=== PATIENT | male | born 1960 | race Caucasian/White ===

== ENCOUNTER 2017-06-20 01:25 | Inpatient (IN) | payer BC ==
[~2017-06-20] VITALS: Ht 190.5 cm; Wt 110.8 kg
[~2017-06-20 01:25] MED LIST: BACTRIM DS1 TAB PO; LEXAPRO10 MG PO; LORTAB5 PO; MELOXICAM7.5 MG PO; METFORMIN500 MG PO; NEXIUM20 M1 PO; NORCO1 TA2 PO; SIMVASTATIN40 MG PO; TRAMADOL HCL50 MG PO; ULTRAM50 M1 PO
--- NOTE | 2017-06-20 01:29 | NUR ---
PT STRAIGHT BACK TO ROOM 14 AND TRIAGED.
[2017-06-20] MEDS ORDERED: EFFEXOR XR75 MG PO (01:54)
[2017-06-20] MEDS ORDERED: EFFEXOR37.5 MG PO (01:56)
[2017-06-20] MEDS ORDERED: ATORVASTATIN CA40 MG PO (01:57)
[2017-06-20] MEDS ORDERED: WELLBUTRIN XL300 MG PO (01:57)
[2017-06-20 02:07] LABS: HEMATOCRIT 44.6 % (39.0-50.0); HEMOGLOBIN 15.1 g/dl (14.0-18.0); IMMATURE GRANULOCYTES 0.5 % (0.0-1.0); MEAN CELL VOLUME 91.2 fL CALC (80.0-100.0); MEAN CORPUSCULAR HGB 30.9 pG CALC (26.0-32.0); MEAN CORPUSCULAR HGB CONC 33.9 g/L CALC (32.0-36.0); NEUT# 7.25 thou/uL (1.82-7.42); RED BLOOD COUNT 4.89 mill/uL (4.70-6.10)
[2017-06-20 02:12] LABS: URINE BILIRUBIN - DIPSTICK NEGATIVE (NEGATIVE); URINE BLOOD DIPSTICK NEGATIVE (NEGATIVE); URINE COLOR YELLOW; URINE GLUCOSE - DIPSTICK 500 mg/dL (NEGATIVE); URINE KETONE 15 mg/dL (NEGATIVE); URINE LEUK ESTERASE NEGATIVE (NEGATIVE); URINE NITRITE - DIPSTICK NEGATIVE (Negative); URINE PH 5.5 (4.5-8.0); URINE PROTEIN - DIPSTICK TRACE mg/dL (NEG-TRACE); URINE SPECIFIC GRAVITY >=1.030
[2017-06-20 02:13] LABS: URINE CLARITY CLOUDY
[2017-06-20 02:16] LABS: ALBUMIN 4.2 g/dL (3.2-5.0); ALKALINE PHOSPHATASE 87 u/l (38-126); ANION GAP 17 (6-22 (CALC)); BILIRUBIN, TOTAL 0.5 mg/dL (0.0-1.4); BUN 13 mg/dL (9-20); BUN/CREATININE RATIO 21 (12-20 (CALC)); CARBON DIOXIDE 27 mmol/l (22-30); CHLORIDE 102 mmol/l (95-108); CREATININE 0.6 mg/dL (0.7-1.3); GFR > 60 ML/MIN (>=60 (CALC)); GFR FOR AFR.AMER. > 60 ML/MIN (>=60 (CALC)); POTASSIUM 4.5 mmol/l (3.5-5.1); SGOT/AST 19 u/l (17-59); SGPT/ALT 45 u/l (21-72); SODIUM 142 mmol/l (137-146)
[2017-06-20 02:16] LABS: BARBITURATES NEGATIVE (NEGATIVE); COCAINE NEGATIVE (NEGATIVE); METHADONE NEGATIVE (NEGATIVE); OXCYCODONE NEGATIVE (NEGATIVE); TETRAHYDROCANNABIONOL NEGATIVE (NEGATIVE); TRICYLIC ANTIDEPRESSANTS NEGATIVE (NEGATIVE); URINE BACTERIA FEW hpf; URINE MUCUS MANY hpf (NONE-FEW); URINE SQUAMOUS EPITHELIAL CELL MANY EPI/hpf (0-FEW)
--- NOTE | 2017-06-20 02:20 | NUR ---
PT W/P/D SKIN SR NO ECTOPY MEDICATED FOR STERNAL PAIN AT 8 ON SCALE.
[2017-06-20 02:29] LABS: MYOGLOBIN 28 ng/mL (0 - 121)
[2017-06-20 02:47] LABS: TSH, 3RD GENERATION 3.07 uIU/mL (0.47 - 4.68)
--- NOTE | 2017-06-20 03:02 | NUR ---
PT REMEDICATED FOR PAIN AT 5 ON SCALE.SR WITHOUT ECTOPY NO SOB NO NAUSEA,W/P/D SKIN
--- NOTE | 2017-06-20 04:51 | NUR ---
PT REMEDICATED FOR STERNAL PAIN AT 4 ONSCALE,W/P/D SKIN NO NAUSEA NO SOB. SR WITHOUT ECTOPY
--- NOTE | 2017-06-20 05:00 | NUR ---
PHONE REPORT TO NURSE RUEDA IN ICU
--- NOTE | 2017-06-20 05:40 | NUR ---
TO ICU VIA STRETCHER MONITOR AND RN ESCORT IN IMPROVED STABLE CONDITION
--- NOTE | 2017-06-20 05:45 | NUR ---
ARRIVES FROM ER VIA STRETCHER ON TELE MONITOR. AMBULATORY WITH STEADY GAIT FROM ER STRETCHER TO ICU STANDING ELECTRONIC SCALE AND THEN TO ROOM. PT. UNDRESS BOTTOMS AND WITHOUT ASSIST GETS HIMSELF INTO BED. FOUND TO BE SINUS RHYTHM IN THE 80'S ON ARRIVAL TO UNIT. NORMOTENSIVE AT 118/80. PT. STATES WITH 3/10 CHEST PAIN AT THIS TIME. IMPROVED FROM 8/10. PT. DESCRIBES PAIN SHARP WITH RADIATION TO BACK AND LT. ARM. ALSO DESCRIBES SWEATS AND NAUSEA PRIOR TO EPISODE OF CHEST PAIN. PT. PLACED ON 2L NC. CLEAR/SCANT WHEEZE TO LT. UPPER, CLEAR RT. UPPER. DIMINISHED BASES. UPDATED ON PLAN OF CARE AND LIKELY COURSE OF TREATMENT. EXPLAINED OF NEEDED SERIAL ENZYME TESTING.
[2017-06-20 06:00] VITALS: BP 118/94
--- NOTE | 2017-06-20 06:20 | NUR ---
PT. PROVIDED WITH APPLE JUICE AT THIS TIME PER HIS REQUEST. CALL LIGHT REMAINS WITHIN REACH.
--- NOTE | 2017-06-20 07:25 | NUR ---
PT LAYING IN BED RESTING WITH EYES CLOSED, AROUSES EASILY TO VERBAL STIMULI, PT A & O X3, PERRL, HR 80, RESP. 20, BP 105/77, O2 100% ON 2L VIA, EX WHEEZES IN [place], DIMINISHED IN BASES, CLEAR IN RUL, PT STATES CP IS A 3 OUT OF 10 AT THIS TIME, PT DENIES ANY OTHER PAIN, 20G LAC IV, SALINE LOCKED, NO REDNESS OR DRAINAGE AT SITE, STRONG RADIAL AND PEDAL PULSES, AM ASSESSMENT COMPLETE, SEE INTERVENTIONS, SAFETY MEASURES REINFORCED, CALL CABAN WITHIN REACH
--- NOTE | 2017-06-20 07:35 | NUR ---
SETUP ASSISTANCE PROVIDED WITH GAURI MONSALVE
[2017-06-20 08:00] VITALS: BP 105/77
--- NOTE | 2017-06-20 08:00 | NUR ---
PT VERBALIZED HE WAS HOT AND REQUEST THE AC BE TURNED DOWN, AC TURNED DOWN AND FAN PROVIDED FOR PT COMFORT
--- NOTE | 2017-06-20 09:55 | NUR ---
LITTLE HOLLAND AT BEDSIDE DISCUSSING PLAN OF CARE
--- NOTE | 2017-06-20 11:45 | NUR ---
SETUP ASSISTANCE PROVIDED WITH LUNCH
[2017-06-20 12:00] VITALS: BP 107/65
--- NOTE | 2017-06-20 12:40 | NUR ---
PT'S AT BEDSIDE, BROUGHT IN HOME MEDICATION, SENT TO PHARMACY FOR VERIFICATION
--- NOTE | 2017-06-20 12:55 | NUR ---
PT LAYING IN BED RESTING WITH EYES CLOSED, AROUSES EASILY TO VERBAL STIMULI, PT VERBALIZES CP IS BETTER WITH THE PAIN MEDICATION, PT STATES PAIN IS A 2 OUT OF 10, PT REMINDED TO CALL FOR ASSISTANCE, CALL CABAN WITHIN REACH
--- NOTE | 2017-06-20 13:45 | NUR ---
LITTLE HOLLAND AWARE PT WOULD NOT BE SEEN BY DR STOVER UNTIL THURSDAY
--- NOTE | 2017-06-20 15:43 | NUR ---
PT SITTING UP IN THE BED WATCHING TV, NO S/S OF DISTRESS, CALL CABAN WITHIN REACH
[2017-06-20 16:00] VITALS: BP 112/68
--- NOTE | 2017-06-20 18:08 | NUR ---
PT ARRIVED FROM UNIT VIA WC ACCOMPANIED BY STAFF. IV SITE IS FREE FROM REDNESS OR EDEMA. TELE MONITOR HAS BEEN PICKED UP BY STAFF AND PLACED ON PT. AMBULATED TO THE BED. CONTINUE TO OBSERVE AND MONITOR.
[2017-06-20 18:25] VITALS: BP 125/72
[2017-06-20 19:30] VITALS: BP 116/86
--- NOTE | 2017-06-20 19:30 | NUR ---
PATIENT RESTING IN BED WITH O2 VIA NASAL CANNULA IN PLACE-AWAKE ALERT AND ORIENTEDX3-C/O LEFT SIDED CHEST PAIN THAT RADIATES TO THE LEFT SHOULDER. VS TAKEN AND RECORDED, TELE MONITOR SR-79, O2 SATS 98%. EKG DONE AT BEDSIDE. WILL CONT TO MONITOR.
--- NOTE | 2017-06-20 20:00 | NUR ---
SPOKE WITH DR. PAGE WITH PATIENT UPDATE. PATIENT MEDICATED WITH MORPHINE 2MG IVP ORDERED FOR 6/10 ON PAIN SCALE. HEP LOCK TO LEFT AC INTACT AND HEALTHY AT THIS TIME. WILL CONT TO MONITOR.
--- NOTE | 2017-06-20 20:30 | NUR ---
PATIENT RESTING IN BED-APPEARS MORE COMFORTABLE AND STATES THAT IS PAIN IS BETTER AT 3/10. PATIENT IS VOIDING DARK RODRIGUE URINE-ENCOURAGED PO FLUIDS. CALL LIGHT IN REACH. WILL CONT TO MONITOR.
--- NOTE | 2017-06-20 22:52 | NUR ---
PATIENT RESTING IN BED WITH O2 VIA NASAL CANNULA IN PLACE-AWAKE ALERT AND ORIENTED AND C/O LEFT SIDED CHEST PAIN THAT RADIATES TO THE LEFT SHOULDE. VS TAKEN AND RECORDED. TELE MONITOR SR-79. O2 SATS 98. EKG DONE AT BEDSIDE. WILL CONT TO MONITOR.
--- NOTE | 2017-06-21 01:08 | NUR ---
APPEARS SLEEPING AT THIS TIME POSITIONED ON HIS SIDE AND WITH EYES CLOSED. CALL LIGHT IN REACH. WILL CONT TO MONITOR.
--- NOTE | 2017-06-21 03:52 | NUR ---
PATIENT APPEARS SLEEPING AT THIS TIME. CALL LIGHT IN REACH. TELE MONITOR IN PLACE. CALL LIGHT IN REACH, WILL CONT TO MONITOR.
[2017-06-21 04:42] VITALS: BP 119/71
[2017-06-21 05:14] LABS: HEMATOCRIT 40.8 % (39.0-50.0); HEMOGLOBIN 13.6 g/dl (14.0-18.0); IMMATURE GRANULOCYTES 0.4 % (0.0-1.0); MEAN CELL VOLUME 91.7 fL CALC (80.0-100.0); MEAN CORPUSCULAR HGB 30.6 pG CALC (26.0-32.0); MEAN CORPUSCULAR HGB CONC 33.3 g/L CALC (32.0-36.0); RED BLOOD COUNT 4.45 mill/uL (4.70-6.10); RED CELL DISTRI WIDTH 13.9 % (11.5-15.5)
[2017-06-21 05:28] LABS: ANION GAP 14 (6-22 (CALC)); BUN 15 mg/dL (9-20); BUN/CREATININE RATIO 22 (12-20 (CALC)); CARBON DIOXIDE 29 mmol/l (22-30); CHLORIDE 101 mmol/l (95-108); CREATININE 0.7 mg/dL (0.7-1.3); GFR > 60 ML/MIN (>=60 (CALC)); GFR FOR AFR.AMER. > 60 ML/MIN (>=60 (CALC)); MAGNESIUM 1.4 mg/dL (1.6-2.3); POTASSIUM 4.6 mmol/l (3.5-5.1); SODIUM 140 mmol/l (137-146)
[2017-06-21 08:05] VITALS: BP 142/86
--- NOTE | 2017-06-21 08:05 | NUR ---
PT IS RELAXING IN BED, HAD CHEST PAIN AT SHIFT CHANGE MEDICATED ORDERED. IV SITE IS FREE FROM REDNESS OR EDEMA. HR IS REG, PULSES ARE STRONG X4, ABD IS SOFT WITH ACTIVE BS. TELE MONITOR IN PLACE. PT IS "SWEATING, STATED I DO THIS ALL THE TIME, AFTER THE CHEST PAIN FOR NO REASON". CONTINUE TO OBSERVE AND MONITOR.
[2017-06-21 11:45] VITALS: BP 137/42
--- NOTE | 2017-06-21 12:15 | NUR ---
PT IS RELAXING IN BED WITH NO DISTRES NOTED. IV SITE IS FREE FROM REDNESS OR EDEMA. CONTINUE TO OBSERVE AND MONITOR.
--- NOTE | 2017-06-21 16:00 | NUR ---
PT IS RELAXING ON HIS SIDE WITH NO DISTRESS NOTED. AT THIS TIME. IV SITE IS FREE FROM REDNESS OR EDMEA. CONTINUE TO OSBERVE AND MONITOR.
[2017-06-21 16:31] VITALS: BP 105/61
--- NOTE | 2017-06-21 17:00 | NUR ---
PT STATED" ABLE TO REST A LITTLE". LOOKS A LITTLE MORE COMFORTABLE.
--- NOTE | 2017-06-21 17:23 | NUR ---
PT HAS BEEN RESTING , INQUIRED IF HIS COULD BRING HIM IN SOME PLAIN DONUTS. INFORMED THAT WILL INFORM THE ONCOMING NURSE BUT SHOULD BE OK.
[2017-06-21 19:00] VITALS: BP 124/84
--- NOTE | 2017-06-21 19:30 | NUR ---
PATIENT RESTING IN BED ON FIRST ROUNDS. AWAKE ALERT AND ORIENTX3. PATIENT WITH O2 VIA MASK IN PLACE. C/O LEFT CHEST AND LEFT SHOULDER PAIN-STATES VERY LITTLE RELIEF FROM MORPHINE GIVEN AT 1805. EXPLAINED TO PATIENT THAT IT IS TOO EARLY FOR MOPHINE AT THIS TIME. PATIENT MEDICATED WITH MAGIC MOUTHWASH COCKTAIL ORDERED 30CC PO. ASKING FOR ATIVAN-EXPLAINED THAT IT WAS TOOEARLY-IF HE TOOK IT NOW HE WOULD NOT BE ABLE TO TAKE IT AGAIN AT HS. VERBALIZES UNDERSTANDING. IVF PATENT AND INFUSING VIA LEFT AC SITE-WILL REDRESS SITE AT LATER TIME. VOIDING QS RODRIGUE URINE. STATES LAST BM WAS 06/19. ABD IS SOFT WITH BS+. SAFETY PRECAUTIONE REINFORCED. CALL LIGHT IN REACH. WILL CONT TO MONITOR.
--- NOTE | 2017-06-21 21:35 | NUR ---
PATIENT WITH ONLY SLIGHT IMPROVEMENT OF PAIN WITH MORPHINE GIVEN EARLIER. PATIENT DOES STATE THAT HE HAS BEEN TAKING HYDROCODONE 5/325MG PO FOR CHRONIC SHOULDER PAIN AND THAT HE JUST STOP TAKING IT A COUPLE OF WEEKS AGO WHEN HE STARTED SOME OTHER NEW MEDS. [id number] WITH NOVALOG 3UNITS SQ RIGHT ABD. PATIENT ALREADY HAD HS SNACK FROM HOME. SAFETY PRECAUTIONS REINFORCED. CALL LIGHT IN REACH. WILL CONT TO MONITOR.
--- NOTE | 2017-06-22 | NUR ---
APPEARS SLEEPING AT THIS TIME POSITIONED ON SIDE AND EYES CLOSED. IVF PATENT AND INFUSING AT 75CC/HR. CALL LIGHT IN REACH. WILL CONT TO MONITOR.
[2017-06-22 00:19] VITALS: BP 103/65
--- NOTE | 2017-06-22 03:49 | NUR ---
IV SITE LEAKING AND D/C'ED. NEW IV SITE STARTED TO LEFT FOREARM-#22 GAUGE WITH GOOD BLOOD RETURN. PATIENT MEDICATED WITH MORPHINE 2MG IVP FOR PAIN 6/10 ON PAIN SCALE TO LEFT CHEST ANDLEFT SHOULDER. IVF PATENT AND INFUSING AT 75CC/HR. CALL LIGHT IN REACH. WILL CONT TO MONITOR.
[2017-06-22 04:25] VITALS: BP 114/76
[2017-06-22 05:28] LABS: HEMATOCRIT 40.9 % (39.0-50.0); HEMOGLOBIN 13.3 g/dl (14.0-18.0); IMMATURE GRANULOCYTES 0.4 % (0.0-1.0); MEAN CELL VOLUME 94.5 fL CALC (80.0-100.0); MEAN CORPUSCULAR HGB 30.7 pG CALC (26.0-32.0); MEAN CORPUSCULAR HGB CONC 32.5 g/L CALC (32.0-36.0); NEUT# 5.23 thou/uL (1.82-7.42); RED BLOOD COUNT 4.33 mill/uL (4.70-6.10); RED CELL DISTRI WIDTH 14.1 % (11.5-15.5)
[2017-06-22 05:45] LABS: ALBUMIN 3.4 g/dL (3.2-5.0); ALKALINE PHOSPHATASE 78 u/l (38-126); ANION GAP 14 (6-22 (CALC)); BILIRUBIN, TOTAL 0.4 mg/dL (0.0-1.4); BUN 16 mg/dL (9-20); BUN/CREATININE RATIO 23 (12-20 (CALC)); CARBON DIOXIDE 29 mmol/l (22-30); CHLORIDE 101 mmol/l (95-108); CREATININE 0.7 mg/dL (0.7-1.3); GFR > 60 ML/MIN (>=60 (CALC)); GFR FOR AFR.AMER. > 60 ML/MIN (>=60 (CALC)); MAGNESIUM 1.7 mg/dL (1.6-2.3); POTASSIUM 4.4 mmol/l (3.5-5.1); SGOT/AST 26 u/l (17-59); SGPT/ALT 49 u/l (21-72); SODIUM 139 mmol/l (137-146); TOTAL PROTEIN 5.8 g/dL (6.3-8.2)
--- NOTE | 2017-06-22 07:15 | NUR ---
BEDSIDE REPORT RECEIVED BY HEIDY. PT IS RESTING IN BED AND DENIES NEEDS AT THIS TIME. CALL LIGHT IN REACH.
--- NOTE | 2017-06-22 07:55 | NUR ---
MEDICATED PT WITH MORPHINE FOR PAIN SEE EMAR. ASSESSMENT DONE AND TELE IN PLACE. LUNG SOUND CLEAR/DIMINSHED. NS INFUSING WELL. SAFETY PRECAUTIONS REINFORCED AND CALL LIGHT IN REACH.
[2017-06-22 07:59] VITALS: BP 129/89
--- NOTE | 2017-06-22 10:56 | NUR ---
MEDICATED PT WITH MORPHINE FOR PAIN SEE EMAR. PT DENIES ANY OTHER NEEDS AT THIS TIME. CALL LIGHT IN REACH.
[2017-06-22 11:02] VITALS: BP 138/93
[2017-06-22] MEDS ORDERED: LORTAB 5/3255 MG PO (12:08)
[2017-06-22] MEDS ORDERED: NITROSTAT0.4 MG SL (12:08)
[2017-06-22] MEDS ORDERED: ASPIRIN CHEWABL81 MG PO (12:08)
[2017-06-22] MEDS ORDERED: ATIVAN0.5 MG PO (12:12)
--- NOTE | 2017-06-22 13:14 | NUR ---
MEDICATED PT WITH MORPHINE FOR PAIN SEE EMAR. PT DENIES ANY OTHER NEEDS AT THIS TIME. NO S/S OF DISTRESS NOTED. PT IN ROOM. CALL LIGHT IN REACH.
--- NOTE | 2017-06-22 13:25 | NUR ---
Discharge instructions given. Patient verbalizes understanding of same. Discharged in stable condition via Wheelchair to Home with . All belongings sent with pt.
== END 2017-06-22 13:25 | disposition home or self-care (01) | DRG 311 ==
LOC: ED 01:25 → ED-I 04:08 → ED 04:33 → ICU 04:34 → MS2 12:48 → ICU 16:35 → MS2 18:08
PROVIDERS: Emergency Medicine; Nurse Practitioner Family; ADMIT Internal Medicine; ATTEND Internal Medicine
DX: I20.9 Angina pectoris, unspecified (principal); E83.42 Hypomagnesemia; I45.2 Bifascicular block; E11.9 Type 2 diabetes mellitus without complications; F41.9 Anxiety disorder, unspecified; E78.5 Hyperlipidemia, unspecified; N40.0 Benign prostatic hyperplasia without lower urinary tract symptoms; I51.9 Heart disease, unspecified; F32.9 Major depressive disorder, single episode, unspecified; M54.9 Dorsalgia, unspecified; Z79.84 Long term (current) use of oral hypoglycemic drugs; Z87.891 Personal history of nicotine dependence
CPT/HCPCS: J2060; Q9967

== ENCOUNTER 2020-02-16 11:39 | Observation (INO) | payer BC ==
[~2020-02-16] VITALS: Ht 193 cm; Wt 112.1 kg
[~2020-02-16 11:39] MED LIST changes: +ASPIRIN CHEWABL81 MG PO; +ATIVAN0.5 MG PO; +ATORVASTATIN CA40 MG PO; +EFFEXOR XR75 MG PO; +EFFEXOR37.5 MG PO; +LORTAB 5/3255 MG PO; +NITROSTAT0.4 MG SL; +WELLBUTRIN XL300 MG PO
--- NOTE | 2020-02-16 11:57 | NUR ---
BEDSIDE TRIAGE COMPLETED. PT CHANGED TO GOWN AND VS OBTAINED.
[2020-02-16] MEDS ORDERED: SUCRALFATE1 GM PO (12:33)
[2020-02-16] MEDS ORDERED: LEXAPRO10 MG PO (12:34)
[2020-02-16] MEDS ORDERED: AMITRIPTYLIN25 MG PO (12:35)
[2020-02-16] MEDS ORDERED: BUSPIRONE5 MG PO (12:36)
[2020-02-16] MEDS ORDERED: TAMSULOSIN0.4 MG PO (12:36)
[2020-02-16] MEDS ORDERED: HYDROCO/APAP1 TA9 PO (12:37)
[2020-02-16] MEDS ORDERED: SPIRIVA IN (12:38)
[2020-02-16] MEDS ORDERED: TIZANIDINE HCL4 MG PO (12:39)
[2020-02-16] MEDS ORDERED: ALPRAZOLAM0.25 MG PO (12:42)
[2020-02-16] MEDS ORDERED: PROAIR HFA108 MCG/AC IN (12:44)
[2020-02-16] MEDS ORDERED: SYMBICORT1 AE1 IN (12:45)
[2020-02-16] MEDS ORDERED: CASODEX50 MG PO (12:46)
[2020-02-16] MEDS ORDERED: PROTONIX40 M2 PO (12:46)
--- NOTE | 2020-02-16 12:46 | NUR ---
PT STATES THAT HE IS COVID POSITIVE AND THAT HE HAS STARTED WITH THESE FLU LIKE SYMPTOMS SINCE A WK AGO AND HE MENTIONS THAT IN THE LAST 24 HRS HIS S/S OF HEADACHE, BODY ACHES, AND SOB HAS INCREASED. PT HAS A RR 28 AND SPO2 IS AT 98%. DENIES ANY COUGH, N/V, OR DIARRHEA. DENIES CHEST PAIN. LUNGS HAVE WHEEZING BILAT AND IS INCREASED IN THE RIGHT LUNG. EKG DONE, LABS AND MD CORONADO COMPLETED. CALL LIGHT WITHIN REACH. WILL CONTINUE TO MONITOR.
[2020-02-16] MEDS ORDERED: MELOXICAM15 MG PO (12:47)
[2020-02-16] MEDS ORDERED: NALTREXONE50 MG PO (12:47)
[2020-02-16 13:13] LABS: HEMATOCRIT 44.9 % (39.0-50.0); HEMOGLOBIN 15.2 g/dl (14.0-18.0); IMMATURE GRANULOCYTES 0.7 % (0.0-5.0); MEAN CELL VOLUME 88.6 fL CALC (80.0-100.0); MEAN CORPUSCULAR HGB CONC 33.9 g/dL CAL (32.0-36.0); NEUT# 6.54 thou/uL (1.82-7.42); RED BLOOD COUNT 5.07 mill/uL (4.70-6.10)
[2020-02-16 13:25] LABS: ALBUMIN 4.8 g/dL (3.2-5.0); ALKALINE PHOSPHATASE 84 u/l (38-126); ANION GAP 15 (6-22 (CALC)); BILIRUBIN, TOTAL 0.7 mg/dL (0.0-1.4); BUN 20 mg/dL (9-20); BUN/CREATININE RATIO 29 (12-20 (CALC)); CARBON DIOXIDE 24 mmol/l (22-30); CHLORIDE 101 mmol/l (95-108); CREATININE 0.7 mg/dL (0.7-1.3); GFR > 60 ML/MIN (>=60 (CALC)); GFR FOR AFR.AMER. > 60 ML/MIN (>=60 (CALC)); SGOT/AST 20 u/l (17-59); SODIUM 135 mmol/l (137-146); TOTAL PROTEIN 7.7 g/dL (6.3-8.2)
--- NOTE | 2020-02-16 13:33 | NUR ---
PT RESTING ON STRETCHER, DENIES ANY NEEDS AND CALL LIGHT WITHIN REACH
[2020-02-16 13:34] LABS: INTERNATIONAL NORMALIZED RATIO 0.9 RATIO (0.7-1.3); PROTHROMBIN TIME 9.2 SECONDS (9.0-12.5)
[2020-02-16 13:36] LABS: MYOGLOBIN 28 ng/mL (0 - 121)
[2020-02-16 13:42] LABS: D-DIMER 0.17 mg/L (0.19-0.60)
--- NOTE | 2020-02-16 14:30 | NUR ---
PT UPDATED ON PLAN OF CARE. HE VERBALIZED UNDERSTANDING ON ADMISSION. DENIES ANY NEEDS AT THIS TIME, CALL LIGHT WITHIN REACH
[2020-02-16 14:56] LABS: URINE BILIRUBIN - DIPSTICK NEGATIVE (NEGATIVE); URINE BLOOD DIPSTICK NEGATIVE (NEGATIVE); URINE COLOR YELLOW; URINE GLUCOSE - DIPSTICK 250 mg/dL (NEGATIVE); URINE KETONE NEGATIVE (NEGATIVE); URINE LEUK ESTERASE NEGATIVE (NEGATIVE); URINE NITRITE - DIPSTICK NEGATIVE (Negative); URINE PH 5.5 (4.5-8.0); URINE PROTEIN - DIPSTICK NEGATIVE (NEG-TRACE); URINE SPECIFIC GRAVITY >=1.030; URINE UROBILINOGEN - DIPSTICK 0.2 E.U./dL (0.2)
--- NOTE | 2020-02-16 15:24 | NUR ---
GAVE REPORT TO MICAELA
--- NOTE | 2020-02-16 15:30 | NUR ---
PT TRANSPORTED TO [facility] STABLE AND IN NO DISTRESS. CARE ASSUMED TO MICAELA Admission Note Report Given to: MICAELA Transported by: X Wheelchair Stretcher Transported with: X Nurse Transporter X Patent IV O2 X [employer] Location: ICU X MS2
--- NOTE | 2020-02-16 15:36 | NUR ---
PT ARRIVED VIA WC WITH STAFF. IV AND TELE MONITOR IN PLACE.
--- NOTE | 2020-02-16 16:05 | NUR ---
ASSESSMENT IS COMPLTED: IV SITE IS FREE FROM REDNESS OR EDEMA. HR IS REG,PULSES ARE STRONG X4, ABD IS SOFT WITH ACTIVE BS. BREATH SOUNDS ARE WHEEZING. DOES HAVE SOME COUGHING NO SPUTUM. TELE MONITOR IN PLACE. CONTINUE TO OSBERVE AND MONITOR.
[2020-02-16 16:15] VITALS: BP 137/90
--- NOTE | 2020-02-16 17:08 | NUR ---
CALLED DR MA RE: LACTIC ACID LEVEL BEING REFUSED BY PT TO LET THE LAB DRAW. STATED" ITS OK NOT TO WORRY ABOUT IT.".
--- NOTE | 2020-02-16 18:32 | NUR ---
PT IS RELAXING IN BED WITH NO DISTRESS NOTED
[2020-02-16 19:15] VITALS: BP 114/71
--- NOTE | 2020-02-16 19:35 | NUR ---
SUPERVISOR FERTILIZER PROCESSING REPORTED THAT PT ASKED HER FOR SOMETHING ELSE FOR PAIN WHEN SHE TOOK WATER AROUND AND TO OBTAIN V/S. I WAS IN ANOTHER ROOM AT THAT TIME, BUT NOW ENTERED THE ROOM AND TURNED A SMALL LOW LIGHT ON TO CHECK PT. HE APPEARS TO BE SLEEPING ON HIS SIDE, BACK TO THE DOOR. HE DID NOT AWAKE TO ME ENTERING THE ROOM. PT LEFT SLEEPING, WITH CALL LIGHT AT SIDE. NO S/O DISTRESS AT THIS TIME.
--- NOTE | 2020-02-16 21:25 | NUR ---
PT ACCU-CHECK IN CRITICAL RANGE. STAT BLOOD GLUCOSE OBTAINED AND PHYSICIAN NOTIFIED OF 571 BLOOD GLUCOSE LEVEL. NEW ORDERS WERE RECEIVED. I ALSO NOTIFIED PHYSICIAN OF C/O PAIN AND PTS REQUEST OF ADDITIONAL PAIN MEDICATION FOR HEAD/NECK AND R.HIP PAIN. NEW ORDERS RECEIVED FOR PAIN LEVEL AT THIS TIME.
--- NOTE | 2020-02-16 22:10 | NUR ---
PT MEDICATED FOR ELEVATED BLOOD GLUCOSE AND FOR PAIN 7/10 IN HEAD AND NECK. PT DOES NOT REPORT NECK STIFFNESS, NOR DOES HE APPEAR TO BE STIFF IN THE NECK, HE IS MOVING AROUND WELL AT THIS TIME, BUT REPORTS PAIN. HE IS NOW REPORTING PAIN IN HIS RIGHT HIP AND HIS HAND WHERE BLOOD WAS DRAWN. WILL CONTINUE TO MONITOR. PT PO FLUID INTAKE IS OVER 2000MLS SO FAR THIS SHIFT FOR ME AND HE IS ASKING FOR MORE WATER. URINATED 2X, AMOUNTS ARE IN CHART. WILL CONTINUE TO MONITOR. ANTIBIOTIC THERAPY IS NOT AVAILABLE ON THE MED SURG UNIT, CALLED SUPERVISION FOR MEDICATION, WILL ADMINISTER WHEN IT BECOMES AVAILABLE.
--- NOTE | 2020-02-16 22:47 | NUR ---
PT MEDICATED WITH IV ANTIBIOTIC THERAPY AT THIS TIME. HE REPORTS PAIN HAS IMPROVED IN RESPONSE TO THE MORPHINE ADMINSTERED PRIOR. DENIES ANY OTHER NEEDS AT THIS TIME. CALL LIGHT IS W/IN REACH.
[2020-02-16 23:20] VITALS: BP 107/65
[2020-02-17 04:30] VITALS: BP 87/55
--- NOTE | 2020-02-17 06:13 | NUR ---
PT BP MANUALLY CHECKED @120/70. IVF REPLENISHED AND PT MEDICATED FOR PAIN REPORTED 10/10 IN NECK AREA. NO OUTWARD S/O DISTRESS NOTED. CALL LIGHT IS AT SIDE, PT DENIES ANY OTHER NEEDS AT THIS TIME, ENCOURAGED HIM TO CALL NEEDS ARISE.
[2020-02-17 06:15] VITALS: BP 120/70
[2020-02-17 07:58] VITALS: BP 121/53
--- NOTE | 2020-02-17 07:58 | NUR ---
RECIEVED REPORT FROM KIM DANIEL. PT RESTING IN SEMI FOWLERS POSITION UPON ENTERING ROOM. INTRODUCED SELF TO PT AND DISCUSSED POC. PT IS A/O X3. ASSESSMENT AND VITALS COMPLETED. RESPIRATIONS ARE EVEN AND UNLABORED ON ROOM AIR. HEART RHYTHM IS NORMAL WITH TELE MONITORING IN PLACE, SR WITH IVCD PER ER MONITORING. RADIAL AND PEDAL PULSES ARE STRONG WITH NORMAL CAPILLARY REFILL. #20G IN RAC RUNNING WITH IVF PER ORDER, SITE APPEARS HEALTHY AND PATENT. ACCU CHECK RESULTING IN 302, SLIDING SCALE COVERAGED ADMINISTERED. PT COMPLAINS OF 7/10 PAIN IN NECK AND BACK. LORTAB TO BE ADMINISTERED. PT DENIES OF ANY OTHER PAINS OR DISCOMFORTS. ALL SAFTEY AND ISOLATION PRECAUTIONS ARE IN PLACE WITH CALL LIGHT IN REACH. WILL CONTINUE TO MONITOR.
[2020-02-17 10:59] VITALS: BP 119/73
--- NOTE | 2020-02-17 11:44 | NUR ---
PT REQUEST FOR XANAX AT THIS TIME. XANAX ADMINISTERED. REASSESSMENT OF PAIN RESULTING IN 10/02. PT STATES THAT LORTAB WAS NO HELP. DRY ICE MAKER SUGGESTED REASSESSMENT OF PAIN AFTER ADMINISTRATION OF XANAX. PT AGGREED. RESPIRATIONS REMAINS EVEN AND UNLABORED ON ROOM AIR.PT DENIES OF ANY ADDITIONAL NEEDS AT THIS TIME. ALL SAFETY AND ISOLATION PRECAUTIONS ARE IN PLACE WITH CALL LIGHT IN REACH. WILL CONTINUE TO MONITOR
[2020-02-17 15:15] VITALS: BP 106/62
--- NOTE | 2020-02-17 16:11 | NUR ---
PT RESTING IN SEMI FOWLERS POSITION. RESPIRATIONS ARE EVEN AND UNLABORED ON ROOM AIR. IVF INFUSING PER ORDER, SITE APPEARS HEALTHY AND PATENT. PT COMPLAINS OF 9/10 PAIN IN BACK AND NECK, MORPHINE ADMINISTERED. PT DENIES OF ANY OTHER PAINS OR DISCOMFORTS. ALL SAFTEY AND ISOLATION PRECAUTIONS ARE IN PLACE WITH CALL LIGHT IN REACH. WILL CONTINUE TO MONITOR
--- NOTE | 2020-02-17 18:56 | NUR ---
CALLED FOR UPDATE, PASSCODE PROVIDED. PROTECTION MANAGER INFORMED BY THAT PT DOES HAVE HISTORY OF DRUG AND ALCOHOL ABUSE. STATES THAT "HE WILL COMPLAIN OF PAINS WHEN HE NOT IN PLAIN."
[2020-02-17 19:00] VITALS: BP 116/70
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
--- NOTE | 2020-02-17 20:34 | NUR ---
SPOKE WITH DR. MA REGARDING PT'S CONCERNS AND REQUEST FOR NON-OPIATE ANALGESIC. DR. MA REPLIES HE WILL ORDER TORADOL VIA [facility]PO[facility]. PT MADE AWARE. TEACHING PROVIDED ON TORADOL. PT SATISFIED WITH CHANGES TO HIS ANALGESIC.
--- NOTE | 2020-02-17 21:45 | NUR ---
FINGERSTICK GLUCOSE 282mg/Dl, INSULIN ADMINSITERED PER SLIDING SCALE. SCHEDULED MEDICATIONS ADMINISTERED. PRN TORADOL AND TYLENOL ADMINSITERED FOR THROBBING NECK PAIN 11/02. SEE E-MAR. PT DENIES FURTHER NEEDS AT THIS TIME. CALL CABAN WITHIN REACH, AGREES TO CALL PRN.
--- NOTE | 2020-02-17 23:59 | NUR ---
PT LAYING IN BED WITH EYES CLOSED, NO APPARENT DISTRESS, APPEARS TO BE SLEEPING COMFORTABLY. RESPIRATIONS REGULAR AND UNLABORED. CALL CABAN REMAINS WITHIN REACH.
[2020-02-18] VITALS: BP 123/64
--- NOTE | 2020-02-18 04:00 | NUR ---
PT LAYING IN BED WITH EYES CLOSED, NO APPARENT DISTRESS, APPEARS TO BE SLEEPING COMFORTABLY. RESPIRATIONS REGULAR AND UNLABORED. CALL CABAN REMAINS WITHIN REACH.
[2020-02-18 05:10] VITALS: BP 126/59
[2020-02-18 05:51] LABS: IMMATURE GRANULOCYTES 0.6 % (0.0-5.0); MEAN CELL VOLUME 91.9 fL CALC (80.0-100.0); MEAN CORPUSCULAR HGB 29.7 pG CALC (26.0-32.0); MEAN CORPUSCULAR HGB CONC 32.3 g/dL CAL (32.0-36.0); NEUT# 4.25 thou/uL (1.82-7.42); RED BLOOD COUNT 4.18 mill/uL (4.70-6.10); RED CELL DISTRI WIDTH 14.2 % (11.5-15.5)
[2020-02-18 06:03] LABS: HEMATOCRIT 38.4 % (39.0-50.0); HEMOGLOBIN 12.4 g/dl (14.0-18.0)
[2020-02-18 06:26] LABS: ALKALINE PHOSPHATASE 67 u/l (38-126); ANION GAP 7 (6-22 (CALC)); BUN 19 mg/dL (9-20); BUN/CREATININE RATIO 27 (12-20 (CALC)); C-REACTIVE PROTEIN 0.7 mg/dL (0-0.9); CARBON DIOXIDE 28 mmol/l (22-30); CHLORIDE 106 mmol/l (95-108); CREATININE 0.7 mg/dL (0.7-1.3); GFR > 60 ML/MIN (>=60 (CALC)); GFR FOR AFR.AMER. > 60 ML/MIN (>=60 (CALC)); POTASSIUM 4.3 mmol/l (3.5-5.1); SGOT/AST 17 u/l (17-59); SODIUM 136 mmol/l (137-146)
[2020-02-18 06:29] LABS: ALBUMIN 3.2 g/dL (3.2-5.0); BILIRUBIN, TOTAL 0.2 mg/dL (0.0-1.4); TOTAL PROTEIN 5.5 g/dL (6.3-8.2)
--- NOTE | 2020-02-18 07:33 | NUR ---
RECIEVED REPORT FROM KIM MRUGUIA. PT RESTING IN LOW FOLWERS POSITION UPON ENTERING ROOM. INTRODUCED SELF TO PT AND DISCUSSED POC. PT IS A/O X3. ASSESSMENT AND VITALS COMPLETED. BP 147/88, HR 71, O2 99% ON ROOM AIR. RESPIRATIONS ARE EVEN ADND UNLABAORED. LUNG SOUNDS ARE DIMINISHED. HEART RHYTHM IS NORMAL WITH TELE IN PLACE. BOWEL SOUNDS ARE ACTIVE IN ALL QUADRANTS. RADIAL AND PEDAL PULSES STRONG. #20G IN RAC RUNNING WITH NORMAL SALINE PER ORDER, SITE APPEARS HEALTHY AND PATENT. PT COMPLAINS OF 8/10 PAIN IN BACK. PT TO BE MEDICATED PER EMAR. PT DENIES OF ANY OTHER NEEDS AT THIS TIME. ALL SAFETY AND ISOALTION PRECAUTIONS ARE IN PLACE WIHT CALL LIGHT IN REACH. WILL CONTIUE TO MONITOR
[2020-02-18 07:59] VITALS: BP 147/88
--- NOTE | 2020-02-18 09:28 | NUR ---
DR MA AT BEDSIDE
[2020-02-18] MEDS ORDERED: GUAIFENESI100 MG/51 PO (10:05)
[2020-02-18] MEDS ORDERED: MEDDOSEPAK PO (10:05)
[2020-02-18] MEDS ORDERED: ZITHROMAX250 MG PO (10:05)
[2020-02-18] MEDS ORDERED: TESSALON PER100 MG PO (10:09)
[2020-02-18] MEDS ORDERED: LEVEMIR FL100 UNIT/M SC (10:09)
--- NOTE | 2020-02-18 10:58 | NUR ---
PT EDUCATED ON DISCHARGE INSTRUCTIONS AND NEW MEDICATIONS. PT VERBALIZED UNDERSTANDING. IV REMOVED WITH CATHATER STILL INTACT. PT TOLERATED WELL. TELE MONITORING REMOVED. ER NOTIFIED. WAITING FOR TRANSPORTATION. WILL CONTINUE TO MONITOR
--- NOTE | 2020-02-18 11:23 | NUR ---
Discharge instructions given. Patient verbalizes understanding of same. Discharged in stable condition via Wheelchair to Home with staff. All belongings sent with pt. PT DISCHARGED HOME VIA WHEELCHAIR ACCOMPANIED BY VÍCTOR TORRES. PT DISCHARGED WITH ALL DISCHARGE INSTRUCTIONS AND BELONGINGS
--- NOTE | 2020-02-20 14:32 | NUR ---
Post discharge follow up call completed today, 02/19 Pt. states he is doing well, improving gradually each day. Pt. is taking medication prescribed at discharge without issue. Pt. called PCP to schedule a follow up appt. and is wain=ting for a call back. No qustions or concerns. "you guys were great!"
== END 2020-02-18 11:22 | disposition home or self-care (01) | DRG 178 ==
LOC: ED 11:39 → ED-I 14:13 → ED 14:24 → MS2 14:25
PROVIDERS: Emergency Medicine; ADMIT Internal Medicine; ATTEND Internal Medicine
DX: U07.1 COVID-19 (principal); E87.2 Acidosis; R50.9 Fever, unspecified; R51.9 Headache, unspecified; R52 Pain, unspecified; R53.1 Weakness; R53.83 Other fatigue; F41.9 Anxiety disorder, unspecified; I25.119 Atherosclerotic heart disease of native coronary artery with unspecified angina pectoris; I45.10 Unspecified right bundle-branch block; E11.9 Type 2 diabetes mellitus without complications; J44.9 Chronic obstructive pulmonary disease, unspecified; N40.0 Benign prostatic hyperplasia without lower urinary tract symptoms; I25.2 Old myocardial infarction; F17.210 Nicotine dependence, cigarettes, uncomplicated; Z79.84 Long term (current) use of oral hypoglycemic drugs; Z85.46 Personal history of malignant neoplasm of prostate
CPT/HCPCS: G0378; J1650

== ENCOUNTER 2022-04-26 16:52 | Inpatient (IN) | payer OTHER ==
[2022-04-26] VITALS (32 sets, daily range): BP systolic 53–160; BP diastolic 22–91
[~2022-04-26] VITALS: Ht 193 cm; Wt 123.0 kg
[~2022-04-26 16:52] MED LIST changes: +ALPRAZOLAM0.25 MG PO; +AMITRIPTYLIN25 MG PO; +BUSPIRONE5 MG PO; +CASODEX50 MG PO; +GUAIFENESI100 MG/51 PO; +HYDROCO/APAP1 TA9 PO; +LEVEMIR FL100 UNIT/M SC; +MEDDOSEPAK PO; +MELOXICAM15 MG PO; +NALTREXONE50 MG PO; +PROAIR HFA108 MCG/AC IN; +PROTONIX40 M2 PO; +SPIRIVA IN; +SUCRALFATE1 GM PO; +SYMBICORT1 AE1 IN; +TAMSULOSIN0.4 MG PO; +TESSALON PER100 MG PO; +TIZANIDINE HCL4 MG PO; +ZITHROMAX250 MG PO
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
--- NOTE | 2022-04-26 17:18 | NUR ---
PT COMES IN VIA EMS FOR CHEST PAIN, AT BEDSIDE, PT CONNECTED TO VITALS MONITOR.
--- NOTE | 2022-04-26 17:44 | NUR ---
PT STATES HE HAS NOT TAKEN ANY OF HIS PRESCIPTION MEDS IN MONTHS. HE REPORTS "I KNOW I SHOULD TAKE THEM BUT I JUST DONT ANYMORE."
[2022-04-26 17:56] LABS: BASO% 0.4 % (0-3); EOS% 0.2 % (0-8); HEMATOCRIT 40.4 % (39.0-50.0); HEMOGLOBIN 12.9 g/dl (14.0-18.0); IMMATURE GRANULOCYTES 0.1 % (0.0-5.0); LYMPH% 20.5 % (15-41); MEAN CORPUSCULAR HGB 30.4 pG CALC (26.0-32.0); MEAN CORPUSCULAR HGB CONC 31.9 g/dL CAL (32.0-36.0); MONO% 4.4 % (2-13); NEUT# 6.26 thou/uL (1.82-7.42); NEUT% 74.4 % (42-76); RED BLOOD COUNT 4.25 mill/uL (4.70-6.10); RED CELL DISTRI WIDTH 13.5 % (11.5-15.5)
[2022-04-26 17:57] LABS: MEAN CELL VOLUME 95.1 fL CALC (80.0-100.0)
[2022-04-26 18:09] LABS: ALBUMIN 3.2 g/dL (3.2-5.0); ALKALINE PHOSPHATASE 71 u/l (38-126); BUN 5 mg/dL (9-20); BUN/CREATININE RATIO 7 (12-20 (CALC)); CHLORIDE 105 mmol/l (95-108); CREATININE 0.8 mg/dL (0.7-1.3); GFR FOR AFR.AMER. > 60 ML/MIN (>=60 (CALC)); GFR OTHER RACES > 60 ML/MIN (>=60 (CALC)); LIPASE 47 u/l (23-300); SODIUM 138 mmol/l (137-146); TOTAL PROTEIN 5.7 g/dL (6.3-8.2)
[2022-04-26 18:10] LABS: ANION GAP 16 (6-22 (CALC)); BILIRUBIN, TOTAL 0.2 mg/dL (0.2-1.3); CARBON DIOXIDE 20 mmol/l (22-30); MAGNESIUM 1.2 mg/dL (1.6-2.3); POTASSIUM 2.9 mmol/l (3.5-5.1); SGOT/AST 42 u/l (17-59)
--- NOTE | 2022-04-26 18:35 | NUR ---
PT ARLETH ACTED. VITALS STABLE. PT A/OX4 SITTING IN BED, EXPLAINED CARE PLAN AND AGREES TO CARE. 1:1 SITTER AT BEDSIDE
--- NOTE | 2022-04-26 19:30 | NUR ---
PT TO RADIOLOGY
--- NOTE | 2022-04-26 20:13 | NUR ---
PT RESTING IN BED COMFORTABLY DENIES CHEST PAIN, SITTER 1;1 BEDSIDE. SI PRECAUTIONS IN PLACE.
--- NOTE | 2022-04-26 22:51 | NUR ---
PT RESTING IN BED. SI PRECAUTIONS IN PLACE. 1:1 SITTER.
[2022-04-27] VITALS (67 sets, daily range): BP systolic 109–184; BP diastolic 64–129
--- NOTE | 2022-04-27 01:40 | NUR ---
PT DENIES NEEDS, PLEASANT AND COOPERATIVE, MOVES SELF IN BED, SINUS TACH, ON RA WITH SAT MID TO HIGH 90'S
--- NOTE | 2022-04-27 03:16 | NUR ---
PT AWAKE AND RESTING IN BED, COOPERATIVE
--- NOTE | 2022-04-27 05:39 | NUR ---
PT WAS UP AND AMBULATED TO BATHROOM FOR BM, NOW BACK TO BED, DENIES FURTHER NEEDS, NO ACUTE DISTRESS NOTED
--- NOTE | 2022-04-27 07:30 | NUR ---
PT IN ROOM AWAKE, IN BED AWAITING FOR PLACEMENT TO A CSU.
--- NOTE | 2022-04-27 08:30 | NUR ---
Reassessment of patient completed. No distress noted. SITTER AT BEDSIDE.
--- NOTE | 2022-04-27 09:30 | NUR ---
Pt. rechecked post pain med administration. Pain level (1-10): 6 Pain better/worse: Y
--- NOTE | 2022-04-27 09:30 | NUR ---
Reassessment of patient completed. No distress noted. SITTER AT BEDSIDE, SAFE ENVIRONMENT MAINTAINED.
--- NOTE | 2022-04-27 10:30 | NUR ---
Reassessment of patient completed. No distress noted. SITTER AT BEDSIDE, SAFE ENVIRONMENT MAINTAINED.
--- NOTE | 2022-04-27 11:30 | NUR ---
Reassessment of patient completed. No distress noted. SITTER AT BEDISE, SAFE ENVIRONMENT MAINTAINED.
--- NOTE | 2022-04-27 12:15 | NUR ---
'S OFFICE ARRIVED TO TAKE PT TO CSU. MONITORED PT'S VITALS, BP AT 173/122, PREVIOUS 189/101. ALERTED AND MEDS ORDERED FOR ETOH WITHDRAWAL, HYPERTENSION. CIWA OF 5. TRANSPORTATION TO CSU DELAYED SO PT CAN CONTINUE TO BE MONITORED.
[2022-04-27 15:10] LABS: BASO% 0.1 % (0-3); HEMATOCRIT 40.2 % (39.0-50.0); HEMOGLOBIN 13.1 g/dl (14.0-18.0); IMMATURE GRANULOCYTES 0.1 % (0.0-5.0); LYMPH% 11.2 % (15-41); MEAN CELL VOLUME 94.6 fL CALC (80.0-100.0); MEAN CORPUSCULAR HGB 30.8 pG CALC (26.0-32.0); MEAN CORPUSCULAR HGB CONC 32.6 g/dL CAL (32.0-36.0); MONO% 4.3 % (2-13); NEUT# 8.16 thou/uL (1.82-7.42); NEUT% 84.3 % (42-76); RED BLOOD COUNT 4.25 mill/uL (4.70-6.10); RED CELL DISTRI WIDTH 13.8 % (11.5-15.5)
[2022-04-27 15:28] LABS: ALBUMIN 3.6 g/dL (3.2-5.0); ALKALINE PHOSPHATASE 87 u/l (38-126); BUN 8 mg/dL (9-20); BUN/CREATININE RATIO 12 (12-20 (CALC)); CHLORIDE 102 mmol/l (95-108); CREATININE 0.7 mg/dL (0.7-1.3); GFR FOR AFR.AMER. > 60 ML/MIN (>=60 (CALC)); GFR OTHER RACES > 60 ML/MIN (>=60 (CALC)); LIPASE 69 u/l (23-300); SGOT/AST 42 u/l (17-59); SODIUM 136 mmol/l (137-146); TOTAL PROTEIN 6.4 g/dL (6.3-8.2)
[2022-04-27 15:29] LABS: ANION GAP 11 (6-22 (CALC)); BILIRUBIN, TOTAL 0.5 mg/dL (0.2-1.3); CARBON DIOXIDE 27 mmol/l (22-30); POTASSIUM 3.9 mmol/l (3.5-5.1)
--- NOTE | 2022-04-27 17:00 | NUR ---
pt removed several Iv lines through out the day. IV line has been replaced, 20g right forearm. cwia scores as follows 04/27/22 1200 5 04/27/22 1300 3 04/27/22 1400 4 04/27/22 1500 9 04/27/22 1600 22 04/27/22 1700 22
--- NOTE | 2022-04-27 17:13 | NUR ---
pt agitation and confusion increasing. pt removing all montoring equiptment, attempting to climb out of bed and leave. stating that he wants to go smoke. pt hallucating, pt has increased disorientation.
--- NOTE | 2022-04-27 17:28 | NUR ---
pt restrained per dr order. pt continues to be confused and removing monitoring devices.
--- NOTE | 2022-04-27 18:31 | NUR ---
pt continues to be confused, pt climbing out of bed, removing all monitoring equiptment. [facility] 04/27/22 [id number]
--- NOTE | 2022-04-27 19:11 | NUR ---
[address] talamantes. 1900 report called to icu, all questions anwsered at this time
--- NOTE | 2022-04-27 19:50 | NUR ---
PT UP TO ICU VIA STRETCHER, ACCOMPANIED BY Beena ABBOTT LPN AND Geneva DEMARCO CNA.
--- NOTE | 2022-04-27 20:12 | NUR ---
RECEIVED PATIENT FROM ER ALERT AND ORIENTED, PLEASANT BUT TRIED TO PULLED LINES .ORIENTED TO ROOM ,CALL LIGHT .VERBALIZED UNDERSTANDING
--- NOTE | 2022-04-27 23:28 | NUR ---
PATIENT RESTING. NO S/S OF DISTRESS NOTED.
[2022-04-28] VITALS (67 sets, daily range): BP systolic 110–188; BP diastolic 56–118
[2022-04-28 05:17] LABS: BASO% 0.5 % (0-3); EOS% 0.2 % (0-8); HEMATOCRIT 36.7 % (39.0-50.0); HEMOGLOBIN 11.6 g/dl (14.0-18.0); IMMATURE GRANULOCYTES 0.2 % (0.0-5.0); LYMPH% 26.2 % (15-41); MEAN CELL VOLUME 97.9 fL CALC (80.0-100.0); MEAN CORPUSCULAR HGB 30.9 pG CALC (26.0-32.0); MEAN CORPUSCULAR HGB CONC 31.6 g/dL CAL (32.0-36.0); MONO% 4.4 % (2-13); NEUT# 4.01 thou/uL (1.82-7.42); NEUT% 68.5 % (42-76); RED BLOOD COUNT 3.75 mill/uL (4.70-6.10); RED CELL DISTRI WIDTH 13.9 % (11.5-15.5)
[2022-04-28 05:23] LABS: ALKALINE PHOSPHATASE 66 u/l (38-126); BILIRUBIN, TOTAL 0.4 mg/dL (0.2-1.3); BUN 7 mg/dL (9-20); BUN/CREATININE RATIO 11 (12-20 (CALC)); CARBON DIOXIDE 29 mmol/l (22-30); CHLORIDE 104 mmol/l (95-108); CREATININE 0.6 mg/dL (0.7-1.3); GFR FOR AFR.AMER. > 60 ML/MIN (>=60 (CALC)); GFR OTHER RACES > 60 ML/MIN (>=60 (CALC)); MAGNESIUM 1.6 mg/dL (1.6-2.3); SGOT/AST 39 u/l (17-59); SODIUM 135 mmol/l (137-146); TOTAL PROTEIN 5.2 g/dL (6.3-8.2)
[2022-04-28 05:25] LABS: ANION GAP 5 (6-22 (CALC)); POTASSIUM 3.4 mmol/l (3.5-5.1)
[2022-04-28 05:26] LABS: ALBUMIN 2.8 g/dL (3.2-5.0)
--- NOTE | 2022-04-28 07:08 | NUR ---
REPORT RECEIVED FROM LOG HOOKER - PT OBSERVED IN BED WITH EYES CLOSED - IN BILATERAL RESTRAINTS - SITTER AT BEDSIDE - NO S/S DISTRESS - CALL LIGHT IN REACH
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
--- NOTE | 2022-04-28 11:21 | NUR ---
Pt asking for ativan due to talking about private matters with psych md - medicated per MD order - pt is also asking to see MD about "full workup" states he needs prostate examined etc - md notified and will re round - sitter at bedside as pt is now a bakeract - call light on table
[2022-04-28] MEDS ORDERED: LEXAPRO10 MG PO (11:41)
[2022-04-28] MEDS ORDERED: TAMSULOSIN0.4 MG PO (11:42)
--- NOTE | 2022-04-28 13:00 | NUR ---
PT RESTING IN BED WITH EYES CLOSED - SITTER OUTSIDE ROOM - CALL LIGHT IN REACH
--- NOTE | 2022-04-28 22:00 | NUR ---
RESTING QUIETLY IN BED USING OXYGEN AT 4 LITERS NC. OEYGEN TITRATED TO 3 LITERS OXYGEN SATUATION 97% AFTER 5 MINUTES. NO SUICIDAL IDEATION VOICED. COOPERATIVE.
[2022-04-29] VITALS (16 sets, daily range): BP systolic 113–167; BP diastolic 63–125
--- NOTE | 2022-04-29 | NUR ---
RESTING QUIETLY IN BED RELAXED POSTURE. OXYGEN SAT 95% ON 2LPM NC WILL CONTINUE TO MONITOR.
--- NOTE | 2022-04-29 01:41 | NUR ---
RESTING QUIETGLY IN BED WITH RELAXED POSTURE NO ACUTE DISTRESS NOTED. B/P 113/63 RESPIRATIONS EVEN AND UNLABORED O2 SAT 95% ON 2LPM NC.
--- NOTE | 2022-04-29 03:00 | NUR ---
RESTING QUIETLY IN BED EASILY AROUSABLE VOIDED 350 CC URINE COOPERATIVE BEHAVIOR APPRORIATE.
--- NOTE | 2022-04-29 03:56 | NUR ---
COMPLAIN OF ACHING SCROTAL PAIN MEDICATED WITH LORTAB FRO RELIEF OF PAIN AND DISCOMFORT.
--- NOTE | 2022-04-29 05:00 | NUR ---
AWAKE AND ALERT PLEASANT AND COOPERATIVE DENIES SUICIDAL IDEALATION CIWA AT 3
[2022-04-29 06:13] LABS: HEMATOCRIT 39.8 % (39.0-50.0); HEMOGLOBIN 12.7 g/dl (14.0-18.0); MEAN CELL VOLUME 96.4 fL CALC (80.0-100.0); MEAN CORPUSCULAR HGB 30.8 pG CALC (26.0-32.0); MEAN CORPUSCULAR HGB CONC 31.9 g/dL CAL (32.0-36.0); RED BLOOD COUNT 4.13 mill/uL (4.70-6.10); RED CELL DISTRI WIDTH 13.5 % (11.5-15.5)
[2022-04-29 06:40] LABS: ALKALINE PHOSPHATASE 73 u/l (38-126); BILIRUBIN, TOTAL 0.3 mg/dL (0.2-1.3); BUN 8 mg/dL (9-20); BUN/CREATININE RATIO 12 (12-20 (CALC)); CARBON DIOXIDE 25 mmol/l (22-30); CHLORIDE 104 mmol/l (95-108); CREATININE 0.7 mg/dL (0.7-1.3); GFR FOR AFR.AMER. > 60 ML/MIN (>=60 (CALC)); GFR OTHER RACES > 60 ML/MIN (>=60 (CALC)); MAGNESIUM 1.6 mg/dL (1.6-2.3); SGOT/AST 40 u/l (17-59); SODIUM 131 mmol/l (137-146); TOTAL PROTEIN 5.6 g/dL (6.3-8.2)
[2022-04-29 06:44] LABS: ANION GAP 7 (6-22 (CALC)); POTASSIUM 4.5 mmol/l (3.5-5.1)
--- NOTE | 2022-04-29 08:00 | NUR ---
PT RESTING IN BED WITH SITTER AT BEDSIDE. BREATHING IS EVEN AND UNLABORED. STATES PAIN IN SCROTUM 09/01 MEDICATED PREVIOUS SHIFT. MD NOTIFIED/AWARE OF PAIN. AWAITING ORDERS. ASSESSMENT COMPLETED. FALL/SAFTEY PRECAUTION IN PLACE. CALL LIGHT WITHIN REACH
--- NOTE | 2022-04-29 11:20 | NUR ---
pt on room air sat 96%
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
--- NOTE | 2022-04-29 12:15 | NUR ---
PT EATING LUNCH. BREATHING EVEN AND UNLABORED. BANANA BAG INFUSING PER EMAR. PT AGITATED STATING DUE TO HOSPITALZATION AND BELONGINGS. ICU DIRECTOR NOTFIED. FALL/SAFTEY PRECAUTION IN PLACE. CALL LIGHT WITHIN REACH
--- NOTE | 2022-04-29 14:28 | NUR ---
RECEIVE PATIENT FROM ICU. REPORT FROM ZAY ALVAREZ. PATIENT ALERT AND ORIENTED X3. PATIENT WITH SITTER FOR REINOSO ACT PRECAUTIONS. SAFETY AND FALL PRECAUTIONS IN PLACE. CALL LIGHT WITHIN IN REACH.
--- NOTE | 2022-04-29 16:00 | NUR ---
PATIENT STABLE AT THIS TIME. RESTING IN BED. SITTER AT BED SIDE.
--- NOTE | 2022-04-29 20:00 | NUR ---
PATIENT RESTING IN BED AT THIS TIME. IVF PATENT AND INFUSING VIA LAC AT 100CC/HR. TELE MONITOR IN PLACE. VOIDING RODRIGUE URINE IN URINAL. SITTER AT BEDSIDE FOR PATIENT SAFETY. CALL LIGHT IN REACH. WILL CONT TO MONITOR.
--- NOTE | 2022-04-29 21:15 | NUR ---
PATIENT RESTING IN BED-GLUCOSE MONITOR WAS 257-COVERED WITH HUMALOG 3UNITS SQ PER SS COVERAGE PROTOCOL. HS SNACK PROVIDED. MEDICATED FOR PAIN WITH LORTAB 5/325MG PO FOR SCROTAL PAIN. IVF PATENT AND NFUSING VIA LAC SITE AT 125CC/HR. SWITE WAS REDRESSED WITH GOOD BLOOD RETURN. TELE MONITOR IN PLACE. LUNGS ARE CLEAR. ABD IS SOFT WITH ACTIVE BS. VOIDING RODRIGUE URINE IN URINAL. SITTER AT BEDSIDE FOR PATIENT SAFETY. CALL LIGHT IN REACH. WILL CONT TO MONITOR.
--- NOTE | 2022-04-29 22:43 | NUR ---
PATIENT CONT TO C/O SCROTAL PAIN-8/10 ON PAIN SCALE. MEDICATED WITH MORPHINE 2MG IVP ORDERED FOR SEVERE PAIN. RT CALLED FOR NEB TREATMENT FOR WHEEZING. CALL LIGHT IN REACH. WILL CONT TO MONITOR.
[2022-04-30] VITALS (8 sets, daily range): BP systolic 153–185; BP diastolic 70–120
--- NOTE | 2022-04-30 04:23 | NUR ---
PATIENT RESTING IN BED-SITTER AT BEDSIDE. MEDICATED FOR PAIN WITH LORTAB 5/325MG PO. SALINE LOCK TO LAC INTACT. TELE MONITOR IN PLACE. BED ALRM IN PLACE. CALL LIGHT IN REACH. WILL CONT TO MONITOR.
[2022-04-30 05:24] LABS: HEMATOCRIT 37.9 % (39.0-50.0); HEMOGLOBIN 12.2 g/dl (14.0-18.0); MEAN CELL VOLUME 96.2 fL CALC (80.0-100.0); MEAN CORPUSCULAR HGB CONC 32.2 g/dL CAL (32.0-36.0); RED BLOOD COUNT 3.94 mill/uL (4.70-6.10); RED CELL DISTRI WIDTH 13.7 % (11.5-15.5)
[2022-04-30 05:45] LABS: ALBUMIN 3.2 g/dL (3.2-5.0); ALKALINE PHOSPHATASE 62 u/l (38-126); ANION GAP 8 (6-22 (CALC)); BILIRUBIN, TOTAL 0.3 mg/dL (0.2-1.3); BUN 10 mg/dL (9-20); BUN/CREATININE RATIO 17 (12-20 (CALC)); CARBON DIOXIDE 27 mmol/l (22-30); CHLORIDE 101 mmol/l (95-108); CREATININE 0.6 mg/dL (0.7-1.3); GFR FOR AFR.AMER. > 60 ML/MIN (>=60 (CALC)); GFR OTHER RACES > 60 ML/MIN (>=60 (CALC)); MAGNESIUM 1.5 mg/dL (1.6-2.3); SGOT/AST 31 u/l (17-59); SODIUM 132 mmol/l (137-146); TOTAL PROTEIN 5.5 g/dL (6.3-8.2)
--- NOTE | 2022-04-30 07:31 | NUR ---
PT RESTING IN HIGH FOWLERS POSITION.A/OX3 ASSESSMENT AND VS COMPLETED. HEART RHYTHM ON TELE, RESPIRATIONS ON ROOM AIR. IV SITE NOTED. PT DENIES ADDITIONAL NEEDS AT THE TIME . SITTER AT BEDSIDE.
--- NOTE | 2022-04-30 12:54 | NUR ---
PT COMPLAINS OF PAIN MEDICATED PER ER.
--- NOTE | 2022-04-30 16:00 | NUR ---
PT STATES NEED OF PAIN MEDICATION ,MEDICATION TO BE PROVIDED PER PRN ORDER.
--- NOTE | 2022-04-30 19:54 | NUR ---
RECEIVED REPORT FROM DAYSHIFT NURSE. PT NOTED SITTING UP IN BED EATING SALAD. SITTER AT BEDSIDE WITH PT. PT IS A/OX3. COMPLAINS OF PAIN 7 OUT OF 10 AT THIS TIME. NASAL CANNULA IN PLACE ON 4L O2. PT DENIES FEELING SOB AND NO S/S OF RESPIRATORY DISTRESS. PT EDUCATED ON PLAN OF CARE FOR TONIGHT. SAFETY PRECAUTIONS IN PLACE AND CALL LIGHT WITHIN REACH.
[2022-05-01] VITALS (7 sets, daily range): BP systolic 140–174; BP diastolic 79–105
--- NOTE | 2022-05-01 | NUR ---
PT REQUESTED BREATHING TREATMENT. RESPIRATORY ADMINISTERED ONE. PT LAYING IN BED NOW ON LT SIDE. SITTER AT BEDSIDE WITH PT. CALL LIGHT WITHIN REACH AND SAFETY PRECAUTIONS IN PLACE.
--- NOTE | 2022-05-01 04:00 | NUR ---
PT LAYING IN BED SLEEPING ON LEFT SIDE. SITTER IN ROOM WITH PT AT THIS TIME. NO S/S OF DISTRESS. CALL LIGHT WITHIN REACH AND SAFETY PRECAUTIONS IN PLACE.
--- NOTE | 2022-05-01 07:40 | NUR ---
PT RESTING IN HIGH FOWLERS POSITION. PT A/OX3 ASSESSMENT AND VS COMPLETED HEART RHYTHM ON TELE RESPIRATIONS ON ROOM AIR IV SITE NOTED TO RAC S.L ALL SAFETY PRECAUTIONS IN PLACE PT STATED WOULD LIKE TO KNOW MORE ABOUT MISSING BELONGINGS. STATED TO PT NANCY ALVAREZ IS INVESTIGATING. PT STATED WOULD LIKE TO SPEAK WITH [facility] IF BELONGINGS NOT FOUND TO BE REPORTED TO APPROPRIATE STAFF. ALL SAFETY PRECAUTIONS IN PLACE CALL LIGHT INREACH.
--- NOTE | 2022-05-01 08:27 | NUR ---
PT BELONGINGS RETURNED TO PT BY NANCY ALVAREZ.
[2022-05-01] MEDS ORDERED: MEDDOSEPAK PO (10:50)
[2022-05-01] MEDS ORDERED: LOSARTAN POTASS25 MG PO (10:50)
[2022-05-01] MEDS ORDERED: LORTAB5 PO (10:51)
--- NOTE | 2022-05-01 12:12 | NUR ---
POSSIBLE DC FOR PT.
--- NOTE | 2022-05-01 15:52 | NUR ---
PT TO BE DC TO ACCEPTING FACILITY.
--- NOTE | 2022-05-01 19:51 | NUR ---
Discharge instructions given. Patient verbalizes understanding of same. Discharged in stable condition via Wheelchair to Home with staff. All belongings sent with pt. IV REMOVED TELE REMOVED PT DC TO [facility]. PT DC AFTER 1800
== END 2022-05-01 17:47 | disposition home or self-care (01) | DRG 896 ==
LOC: ED 16:52 → ED-I 04-27 17:00 → ICU 04-27 17:28 → ED 04-27 17:28 → ICU 04-27 20:36 → MS2 04-29 14:28
PROVIDERS: Emergency Medicine; Internal Medicine; ADMIT Internal Medicine; ATTEND Internal Medicine
DX: F10.231 Alcohol dependence with withdrawal delirium (principal); S06.5X0A Traumatic subdural hemorrhage without loss of consciousness, initial encounter; R45.851 Suicidal ideations; J44.1 Chronic obstructive pulmonary disease with (acute) exacerbation; C61 Malignant neoplasm of prostate; E87.6 Hypokalemia; E11.65 Type 2 diabetes mellitus with hyperglycemia; E83.51 Hypocalcemia; E83.42 Hypomagnesemia; R07.9 Chest pain, unspecified; F41.9 Anxiety disorder, unspecified; I25.10 Atherosclerotic heart disease of native coronary artery without angina pectoris; M54.9 Dorsalgia, unspecified; G89.29 Other chronic pain; E78.00 Pure hypercholesterolemia, unspecified; I25.2 Old myocardial infarction; F17.200 Nicotine dependence, unspecified, uncomplicated; F32.9 Major depressive disorder, single episode, unspecified; N50.82 Scrotal pain; W19.XXXA Unspecified fall, initial encounter; Z62.810 Personal history of physical and sexual abuse in childhood; Z91.199 Patient's noncompliance with other medical treatment and regimen due to unspecified reason; Z79.84 Long term (current) use of oral hypoglycemic drugs; Z86.73 Personal history of transient ischemic attack (TIA), and cerebral infarction without residual deficits; Z91.51 Personal history of suicidal behavior; Z79.4 Long term (current) use of insulin
CPT/HCPCS: J2060; J3475; Q9967; S0164

== ENCOUNTER 2022-07-09 17:12 | Inpatient (IN) | payer OTHER ==
[2022-07-09] VITALS (9 sets, daily range): BP systolic 115–133; BP diastolic 71–100
[~2022-07-09] VITALS: Ht 193 cm; Wt 113.0 kg
[~2022-07-09 17:12] MED LIST changes: +LOSARTAN POTASS25 MG PO
--- NOTE | 2022-07-09 17:12 | NUR ---
PATIENT ARRIVED VIA EMS. ETOH ABUSE X 5 DAYS. ADDITIONAL IV ACCESS OBTAINED.
[2022-07-09 18:19] LABS: BASO% 0.6 % (0-3); EOS% 0.3 % (0-8); IMMATURE GRANULOCYTES 0.1 % (0.0-5.0); LYMPH% 19.6 % (15-41); MEAN CORPUSCULAR HGB 28.4 pG CALC (26.0-32.0); MEAN CORPUSCULAR HGB CONC 32.5 g/dL CAL (32.0-36.0); MONO% 4.1 % (2-13); NEUT# 6.65 thou/uL (1.82-7.42); NEUT% 75.3 % (42-76); RED BLOOD COUNT 5.64 mill/uL (4.70-6.10); RED CELL DISTRI WIDTH 16.6 % (11.5-15.5)
--- NOTE | 2022-07-09 18:20 | NUR ---
PATIENT RESTING. [id number] LITER OF FLUID INITIATED.
[2022-07-09 18:23] LABS: HEMATOCRIT 49.2 % (39.0-50.0); MEAN CELL VOLUME 87.2 fL CALC (80.0-100.0)
[2022-07-09 18:28] LABS: BILIRUBIN, TOTAL 0.4 mg/dL (0.2-1.3); BUN 6 mg/dL (9-20); BUN/CREATININE RATIO 8 (12-20 (CALC)); CARBON DIOXIDE 24 mmol/l (22-30); CHLORIDE 102 mmol/l (95-108); CPK 51 u/l (55-170); CREATININE 0.8 mg/dL (0.7-1.3); ETHYL ALCOHOL 237 mg/dl (0-30); GFR FOR AFR.AMER. > 60 ML/MIN (>=60 (CALC)); GFR OTHER RACES > 60 ML/MIN (>=60 (CALC)); POTASSIUM 3.5 mmol/l (3.5-5.1); SGOT/AST 31 u/l (17-59)
[2022-07-09 18:38] LABS: URINE BILIRUBIN - DIPSTICK NEGATIVE (NEGATIVE); URINE BLOOD DIPSTICK NEGATIVE (NEGATIVE); URINE COLOR YELLOW; URINE GLUCOSE - DIPSTICK >=1000 mg/dL (NEGATIVE); URINE KETONE NEGATIVE (NEGATIVE); URINE LEUK ESTERASE NEGATIVE (NEGATIVE); URINE PH 5.5 (4.5-8.0); URINE PROTEIN - DIPSTICK TRACE mg/dL (NEG-TRACE); URINE UROBILINOGEN - DIPSTICK 0.2 E.U./dL (0.2)
[2022-07-09 18:38] LABS: ALBUMIN 3.9 g/dL (3.2-5.0); ALKALINE PHOSPHATASE 96 u/l (38-126); ANION GAP 19 (6-22 (CALC)); SODIUM 141 mmol/l (137-146); TOTAL PROTEIN 6.7 g/dL (6.3-8.2)
[2022-07-09 18:42] LABS: URINE NITRITE - DIPSTICK NEGATIVE (Negative)
--- NOTE | 2022-07-09 21:39 | NUR ---
PATIENT RESTING AND TAKING IN ORAL FLUIDS. .
--- NOTE | 2022-07-09 22:11 | NUR ---
Reassessment of patient completed. No distress noted.
--- NOTE | 2022-07-09 23:15 | NUR ---
Reassessment of patient completed. No distress noted.
[2022-07-10] VITALS (32 sets, daily range): BP systolic 88–155; BP diastolic 43–97
--- NOTE | 2022-07-10 00:06 | NUR ---
Reassessment of patient completed. No distress noted.
--- NOTE | 2022-07-10 00:40 | NUR ---
PT BECOME TACHYCARDIC WITH MD NENA NOTIFIED, AT BEDSIDE, ORDERS PLACED AND RT PAGED. O2 STABLE BUT TACHYPENIC. PT STATES HE NEEDS A BREATHING TX BUT IS ALSO SHOWING SIGNS OF ALCOHOL WITHDRAWALS.
--- NOTE | 2022-07-10 01:32 | NUR ---
Reassessment of patient completed. PT IS BEGINNING WITH DT'S, SHAKING AND LOOSE BOWELS. CIWA IN PLACE.
--- NOTE | 2022-07-10 02:30 | NUR ---
Reassessment of patient completed. No distress noted.
--- NOTE | 2022-07-10 03:10 | NUR ---
PT TRANSPORTED TO ICU3 IN BY JOHNSON ALVAREZ WITH NAD.
--- NOTE | 2022-07-10 03:15 | NUR ---
PT READY FOR TX REPORT CALLED TO DEENA RN, PT TX IN WC TO ICU O N MONITOR AND IN GOWN. VSS. NAD.
--- NOTE | 2022-07-10 04:00 | NUR ---
PT SITTING UP IN BED WATCHING TV. PT STATES HE IS A LIL ANXIOUS WILL MEDICATE ACCORDINGLY. SAFETY AND CALL LIGHT REVIEWED WITH PT AND HE AGREED. WILL CONTINUE TO MONITOR.
[2022-07-10] MEDS ORDERED: PROTONIX40 M2 PO (06:46)
[2022-07-10] MEDS ORDERED: METFORMIN HYD1000 MG PO (06:50)
[2022-07-10] MEDS ORDERED: EFFEXOR XR75 MG/CAP PO (06:51)
--- NOTE | 2022-07-10 06:59 | NUR ---
PT REPORT RECEIVED FROM LINEN SORTER. PT ALERT/SOME SHAKING NOTICED IN ARMS, DENIES ANY CHEST PAIN, VITAL SIGNS STABLE AT THIS TIME. PT REFUSING TO WEAR NC.
--- NOTE | 2022-07-10 08:27 | NUR ---
pt states approx 5 months ago he had a fall with the head injury. he also states [place] [facility] for [place] where he stayed 35 days, came home and for last 5 days has been drinking something called 99 nippers regularly. states wont go back to that alcohol rehab.
--- NOTE | 2022-07-10 08:48 | NUR ---
at bedside, pt speaking to him about his rehab stay.
--- NOTE | 2022-07-10 09:29 | NUR ---
DR. MA DECREASED FLUIDS TO 10, AND ADDED NEW MEDS. PT REMAINS ALERT/ORIENTED 3. PT SIGNED TO CONSENT FOR RELEASE OF INFORMATION FROM [facility] TO SEND US.
--- NOTE | 2022-07-10 10:38 | NUR ---
pt resting quietly, no complaints at this time.
--- NOTE | 2022-07-10 13:01 | NUR ---
pt resting quietly on bed watching tv, playing on phone, denies any anxiety of chest pain, no tremors noted at this time.
--- NOTE | 2022-07-10 14:30 | NUR ---
PT HAVING INCREASING SHAKINESS AND NERVOUS MOVEMENTS. REQUESTING SOMETHING FOR RESTLESSNESS, ATIVAN GIVEN
[2022-07-11] VITALS (23 sets, daily range): BP systolic 114–160; BP diastolic 77–97
--- NOTE | 2022-07-11 | NUR ---
PT SITTING UP IN BED WATCHING TV. PT WAS VERY ANXIOUS AND UPSET AT THE BEGINING OF SHIFT. HE HAS HAD A FEW DOSES OF ATIVAN WHICH HAS CALMED HIM. WILL CONTINUE TO MONITOR.
--- NOTE | 2022-07-11 03:11 | NUR ---
PT RESTING IN BED COMFORTABLY WITH NAD AND. PT STATED HIS ANXIETY HAS DECREASED SINCE THE LAST DOSE OF ATIVAN. WILL CONTINUE TO MONITOR.
[2022-07-11 05:26] LABS: MEAN CELL VOLUME 89.7 fL CALC (80.0-100.0); MEAN CORPUSCULAR HGB 29.1 pG CALC (26.0-32.0); MEAN CORPUSCULAR HGB CONC 32.4 g/dL CAL (32.0-36.0); RED BLOOD COUNT 4.06 mill/uL (4.70-6.10); RED CELL DISTRI WIDTH 15.6 % (11.5-15.5)
[2022-07-11 05:27] LABS: HEMATOCRIT 36.4 % (39.0-50.0); HEMOGLOBIN 11.8 g/dl (14.0-18.0)
[2022-07-11 05:30] LABS: ALKALINE PHOSPHATASE 84 u/l (38-126); BUN 11 mg/dL (9-20); BUN/CREATININE RATIO 18 (12-20 (CALC)); CARBON DIOXIDE 25 mmol/l (22-30); CHLORIDE 105 mmol/l (95-108); CREATININE 0.6 mg/dL (0.7-1.3); GFR FOR AFR.AMER. > 60 ML/MIN (>=60 (CALC)); GFR OTHER RACES > 60 ML/MIN (>=60 (CALC)); MAGNESIUM 1.3 mg/dL (1.6-2.3); POTASSIUM 4.2 mmol/l (3.5-5.1); SGOT/AST 37 u/l (17-59)
[2022-07-11 05:39] LABS: ALBUMIN 2.9 g/dL (3.2-5.0); ANION GAP 7 (6-22 (CALC)); BILIRUBIN, TOTAL 0.7 mg/dL (0.2-1.3); SODIUM 133 mmol/l (137-146)
--- NOTE | 2022-07-11 07:15 | NUR ---
pt awake in bed; no acute distress noted; assessment completed at this time; pt alert and oriented; admits to chest throbbing rating 8/10; no n/v noted; chest throbbing does not radiate; resp even and unlabored; lungs clear; skin color wnl; ra; hr reg; strong pulses; no edema noted; sr on monitor; abd soft with bs present; no bm noted per literary writer; pt voiding clear yellow urine without complication; urinal at bedside; #18 flushed and patent to rac; no redness or edema noted; #20 ems site noted dislodged from lac; catheter tip intact; pt noted with severe tremors to bue; plan of care/ am meds/ dts explained; call light within reach; will continue to monitor
--- NOTE | 2022-07-11 08:07 | NUR ---
resting with eyes closed/ snoring; no apparent distress noted; call light within reach; will continue to monitor
--- NOTE | 2022-07-11 08:45 | NUR ---
Dr Pittman present at bedside to assess pt and discuss plan of care
--- NOTE | 2022-07-11 10:00 | NUR ---
pt awake in bed; anxious; tremors noted; medication schedule explained; iv intact and patent; urinal at bedside; st on monitor; call light within reach; will continue to monitor
--- NOTE | 2022-07-11 12:13 | NUR ---
pt resting in bed with eyes closed/ snoring; no apparent distress noted; sr on monitor; iv intact and patent; call light within reach; will continue to monitor
--- NOTE | 2022-07-11 14:00 | NUR ---
awake; pt from bed to chair freq per self; fall prec explained; monitoring connecions re-applied; call light within reach; will continue to monitor
--- NOTE | 2022-07-11 15:03 | NUR ---
awake in bed; very anxiouos/emotional; states "[facility]"; requesting seroquel; st on monitor; ativan to be admin; call light within reach; will continue to monitor
--- NOTE | 2022-07-11 16:17 | NUR ---
awake in bed; no acute distress noted; carlos ale's provided; pt requesting coffee; st on monitor; iv intact and saline locked; ra; call light within reach; will continue to monitor
--- NOTE | 2022-07-11 17:03 | NUR ---
pt rayon tester light; stating re-acceptance [facility] the [facility]"; requesting discharge and transportation arrangements; [facility] is [facility] [place]; pt was informed he will be assessed by a MD in the am and case management will follow tomorrow as well;
--- NOTE | 2022-07-11 18:12 | NUR ---
awake in bed eating dinner; no apparent distress noted; pt offers no complaints, other than time medications are due; iv intact; sr on monitor; call light within reach
[2022-07-12] VITALS (19 sets, daily range): BP systolic 122–160; BP diastolic 62–101
--- NOTE | 2022-07-12 | NUR ---
PT WAS EXTREMELY ANXIOUS AT THE BEGINING OF SHIFT AND HAD TO BE MEDICATED. PT STILL ANXIOUS AND CONSTANTLY ASKING TO BE MEDICATED. PT EDUCATED ON SCHEDULED AND PRN MEDICATIONS. WILL MEDICATE ACCORDINGLY AND CONTINUE TO MONITOR.
--- NOTE | 2022-07-12 05:30 | NUR ---
PT ANXIETY SEEMS TO HAVE DECREASED AND IS QUIETLY RESTING IN BED WITH NAD AND VSS. WILL CONTINUE TO MONITOR.
[2022-07-12 05:46] LABS: HEMATOCRIT 35.5 % (39.0-50.0); HEMOGLOBIN 11.9 g/dl (14.0-18.0); MEAN CELL VOLUME 88.8 fL CALC (80.0-100.0); MEAN CORPUSCULAR HGB 29.8 pG CALC (26.0-32.0); MEAN CORPUSCULAR HGB CONC 33.5 g/dL CAL (32.0-36.0)
[2022-07-12 05:56] LABS: ALKALINE PHOSPHATASE 79 u/l (38-126); ANION GAP 6 (6-22 (CALC)); BUN 12 mg/dL (9-20); BUN/CREATININE RATIO 18 (12-20 (CALC)); CARBON DIOXIDE 28 mmol/l (22-30); CHLORIDE 100 mmol/l (95-108); CREATININE 0.7 mg/dL (0.7-1.3); GFR FOR AFR.AMER. > 60 ML/MIN (>=60 (CALC)); GFR OTHER RACES > 60 ML/MIN (>=60 (CALC)); SGOT/AST 26 u/l (17-59); SODIUM 130 mmol/l (137-146); TOTAL PROTEIN 5.2 g/dL (6.3-8.2)
[2022-07-12 05:57] LABS: BILIRUBIN, TOTAL 0.4 mg/dL (0.2-1.3); MAGNESIUM 1.7 mg/dL (1.6-2.3)
--- NOTE | 2022-07-12 08:22 | NUR ---
Patient sitting up in bed eating breakfast. Patient denies any pain at this time. Patient requests Q4 Ativian and Q6 Librium at 0731. Advised patient he is not yet due for those meds, but will f/u as scheduled. Patient is SR on the monitor. Breathing is even and unlabored. Patient has some wheezing in the upper lobes. Given breathing tx as scheduled. Patient is coughing up thick, yellowish sputum. No s/s of distress. Bed in low position. Call light resting on chest. Will continue to monitor.
--- NOTE | 2022-07-12 09:57 | NUR ---
Patient is sitting up in bed watching TV. Patient c/o chest and back pain. Patient states pain level is at an 8 and requesting pain meds. Patient is SR on the monitor. Breathing is even and unlabored. No s/s of distress. Will continue to monitor.
--- NOTE | 2022-07-12 12:11 | NUR ---
Patient sitting up in bed eating lunch. Patient states chest/back pain is much improved since taking Lortab. Patient states he is feeling anxious, requesting librium and ativan. Reminded patient he is not due for Librium. Patient voiced understanding. Patient is SR on the monitor. No s/s of distress. Will continue to monitor.
--- NOTE | 2022-07-12 13:36 | NUR ---
PT ARRIVED TO FLOOR, ROOM 262. REMOVED HIS IV CATHETER. STATED THAT IT WAS BOTHERING HIM. NEW IV TO BE PLACE. VSS. CIWA SCORE 7.
--- NOTE | 2022-07-12 15:11 | NUR ---
PT REMOVED SECOND IV. STATES HE IS A RESTLESS SLEEPER AND THEY JUST COME OUT. RN WILL PLACE NEW IV AT 1630 WHEN ATIVAN IS AVAILABLE FOR PT. PT AGREEABLE TO THIS PLAN.
--- NOTE | 2022-07-12 17:00 | NUR ---
PT RESTING COMFORTABLY. VSS. NO NEEDS AT THIS TIME.
--- NOTE | 2022-07-12 20:05 | NUR ---
patient glucose level read as 365 nurse aware
--- NOTE | 2022-07-12 21:30 | NUR ---
PT IN BED AWAKE WATCING TV. ASSESSMENT COMPLETED. PT REPORTS BEEN ANXIUOS AND REQUEST ATIVAN AND LIBRIUM AND PAIN MEDICATION. PAIN MEDICATION IS TO ERALY TO BE ADMINISTERED. NO S/S OF DISTRES NOTED. BREATHING IS EVEN AND UNLABORED. NO OTHER NEEDS OR CONCERNS VOICED AT THIS TIME. CALL LIGHT IN REACH NAND BED IN LOWEST P[OSITION.
[2022-07-13] VITALS (7 sets, daily range): BP systolic 119–150; BP diastolic 55–85
--- NOTE | 2022-07-13 00:15 | NUR ---
PT IN BED RESTING WITH EYES CLOSED, BREATHIGN IS EVEN AND UNLABORED. NO S/S OF DISTRESS NOTED. CALL LIGHT IN REACH AND BED IN LOWEST POSITION.
--- NOTE | 2022-07-13 04:25 | NUR ---
PT IN BED RESTING WIHT EYES CLOSED. BREATHING EVEN AND UNLABORED. NO S/S OF DISTRES NOTED. CALL LIGHT IN REACH AND BED IN LOWEST POSITION.
--- NOTE | 2022-07-13 05:13 | NUR ---
patient glucose level was 363 nurse aware
--- NOTE | 2022-07-13 07:33 | NUR ---
PT RESTING IN BED. ALL SAFETY MEASURES IN PLACE. NO NEEDS AT THIS TIME. VSS
[2022-07-13 10:27] LABS: ANION GAP 11 (6-22 (CALC)); BUN 12 mg/dL (9-20); BUN/CREATININE RATIO 19 (12-20 (CALC)); CARBON DIOXIDE 22 mmol/l (22-30); CHLORIDE 107 mmol/l (95-108); CREATININE 0.6 mg/dL (0.7-1.3); GFR FOR AFR.AMER. > 60 ML/MIN (>=60 (CALC)); GFR OTHER RACES > 60 ML/MIN (>=60 (CALC)); POTASSIUM 3.5 mmol/l (3.5-5.1); SODIUM 136 mmol/l (137-146)
--- NOTE | 2022-07-13 21:30 | NUR ---
PT IN BED WATCHING TV. BREATHING IS EVEN AND UNLABORED. NO S/S OF DISTRESS NOTED. SHIFT ASSESSMENT COMPLETED. PT REPORT PAIN TO BACK. PT MEDICATED PER MAR. CALL LIGHT IN REACH AND BED IN LOWEST POSITION.
--- NOTE | 2022-07-13 23:50 | NUR ---
PT REPORT FEELING ANXIUOS. PT MEDICATED PER MAR. BREATHING IS EVEN AND UNLABORED. NO S/S OF DITRESS NOTED. CALL LIGHT IN REACH AND BED IN LOWEST POSITION.
[2022-07-14 03:57] VITALS: BP 137/68
--- NOTE | 2022-07-14 04:55 | NUR ---
PT IN BED. REPORT PAIN TO HIS BACK AND FEELING ANXIOUS. PT MEDICATED PER MAR. NO S/S OF DISTRESS NOTED. BREATHING IS EVEN AND UNLABORED. CALL LIGHT IN REACH AND BED IN LOWEST POSITION.
[2022-07-14 06:12] LABS: ANION GAP 8 (6-22 (CALC)); BUN 14 mg/dL (9-20); BUN/CREATININE RATIO 21 (12-20 (CALC)); CARBON DIOXIDE 24 mmol/l (22-30); CHLORIDE 103 mmol/l (95-108); CREATININE 0.7 mg/dL (0.7-1.3); GFR FOR AFR.AMER. > 60 ML/MIN (>=60 (CALC)); GFR OTHER RACES > 60 ML/MIN (>=60 (CALC)); POTASSIUM 3.2 mmol/l (3.5-5.1); SODIUM 132 mmol/l (137-146)
[2022-07-14 07:24] VITALS: BP 152/77
--- NOTE | 2022-07-14 08:00 | NUR ---
PT IN BED WITH HOB UP, ALERT AND ORIENTED X3. PT HAS NO C/O PAIN AT THIS TIME, BUT HE IS REQUESTING MEDICATION FOR AGITATION, PRN MED GIVEN. PT IV INTACT WITH NS @ 100 ML/HR INFUSING. PT AMBULATES WELL TO BATHROOM FOR TOILETING NEEDS AND USING URINAL WELL. PT HAS CALL IKE WITHIN REACH AND SAFETY MESUARES IN PLACE AT THIS TIME.
[2022-07-14 10:28] VITALS: BP 137/59
[2022-07-14] MEDS ORDERED: FOLIC ACID1 M1 PO (11:42)
[2022-07-14] MEDS ORDERED: CHLORDIAZEPOXID25 M1 PO (11:42)
[2022-07-14] MEDS ORDERED: MEDDOSEPAK PO (11:42)
[2022-07-14] MEDS ORDERED: QUETIAPINE FUMA25 MG PO (11:42)
[2022-07-14] MEDS ORDERED: VITAMIN B-1100 M1 PO (11:42)
--- NOTE | 2022-07-14 13:19 | NUR ---
Pt ambulated approx. 30 feet. Provided a walker, but pt stated "it wasn't going to work". Pt held onto side rail in hallway and ambulated back to his room. Gait was not steady. Breathing was normal and unlabored.
--- NOTE | 2022-07-14 14:13 | NUR ---
Discharge instructions given. Patient verbalizes understanding of same. Discharged in stable condition via Wheelchair to Home with family. All belongings sent with pt.
== END 2022-07-14 14:13 | DRG 897 ==
LOC: ED 17:12 → ED-I 07-10 00:40 → ED 07-10 00:56 → ICU 07-10 00:57 → MS2 07-12 13:12
PROVIDERS: Family Medicine; Internal Medicine; ADMIT Internal Medicine; ATTEND Internal Medicine
DX: F10.231 Alcohol dependence with withdrawal delirium (principal); J44.1 Chronic obstructive pulmonary disease with (acute) exacerbation; I10 Essential (primary) hypertension; E11.9 Type 2 diabetes mellitus without complications; E78.00 Pure hypercholesterolemia, unspecified; F41.9 Anxiety disorder, unspecified; F32.A Depression, unspecified; I25.2 Old myocardial infarction; F17.210 Nicotine dependence, cigarettes, uncomplicated; S06.5XAD Traumatic subdural hemorrhage with loss of consciousness status unknown, subsequent encounter; W19.XXXD Unspecified fall, subsequent encounter; Y90.7 Blood alcohol level of 200-239 mg/100 ml; Z91.51 Personal history of suicidal behavior; Z85.46 Personal history of malignant neoplasm of prostate
CPT/HCPCS: J1650; J2060; J3475

== ENCOUNTER 2022-10-26 21:01 | Observation (INO) | payer OTHER ==
[~2022-10-26] VITALS: Ht 193 cm; Wt 103.2 kg
[~2022-10-26 21:01] MED LIST changes: +CHLORDIAZEPOXID25 M1 PO; +EFFEXOR XR75 MG/CAP PO; +FOLIC ACID1 M1 PO; +METFORMIN HYD1000 MG PO; +QUETIAPINE FUMA25 MG PO; +VITAMIN B-1100 M1 PO
--- NOTE | 2022-10-26 21:24 | NUR ---
PT CAME VIA EMS TO ROOM 15 FOR TRIAGE AND CARE.
[2022-10-26 21:59] LABS: BASO% 0.4 % (0-3); EOS% 0.4 % (0-8); HEMATOCRIT 40.8 % (39.0-50.0); HEMOGLOBIN 13.2 g/dl (14.0-18.0); IMMATURE GRANULOCYTES 0.4 % (0.0-5.0); LYMPH% 20.9 % (15-41); MEAN CORPUSCULAR HGB 25.9 pG CALC (26.0-32.0); MEAN CORPUSCULAR HGB CONC 32.4 g/dL CAL (32.0-36.0); MONO% 5.6 % (2-13); NEUT# 5.53 thou/uL (1.82-7.42); NEUT% 72.3 % (42-76); RED BLOOD COUNT 5.1 mill/uL (4.70-6.10); RED CELL DISTRI WIDTH 15.6 % (11.5-15.5)
[2022-10-26 22:11] LABS: ALBUMIN 3.2 g/dL (3.2-5.0); ALKALINE PHOSPHATASE 68 u/l (38-126); ANION GAP 24 (6-22 (CALC)); BILIRUBIN, TOTAL 0.6 mg/dL (0.2-1.3); BUN 7 mg/dL (9-20); BUN/CREATININE RATIO 9 (12-20 (CALC)); CARBON DIOXIDE 16 mmol/l (22-30); CHLORIDE 98 mmol/l (95-108); CREATININE 0.8 mg/dL (0.7-1.3); ETHYL ALCOHOL 141 mg/dl (0-30); GFR FOR AFR.AMER. > 60 ML/MIN (>=60 (CALC)); GFR OTHER RACES > 60 ML/MIN (>=60 (CALC)); POTASSIUM 3.6 mmol/l (3.5-5.1); SGOT/AST 40 u/l (17-59); SODIUM 134 mmol/l (137-146); TOTAL PROTEIN 5.7 g/dL (6.3-8.2)
--- NOTE | 2022-10-27 00:49 | NUR ---
PROVIDER DECIDED TO ADMIT THE PT DUE TO LOSS OF CONCIOUSNESS AND ALSO BEING BORDERLINE DKA. PT IS SLEEPING AT THIS TIME. OF RIGHT NOW THERE ARE NO BEDS UP STAIRS SO HE WILL BE HELD IN THE ER
--- NOTE | 2022-10-27 04:20 | NUR ---
RECEIVED PT FROM ER AT 0340 VIA . PT IS ALERT AND ORIENTED X 3. WEIGHED ON STAND UP SCALE 103.2 KG. VOIDED IN BATHROOM WITH STEADY GAIT. ON TELE NSR. IV FLUIDS INFUSING LEFT AC. HAS ABRASIONS ON FOREHEAD AND BOTH CHEEKS. SUTURES ON TOP OF HIS NOSE. VSS. SAFETY PRECAUTIONS MAINTAINED CALL LIGHT IN REACH.
--- NOTE | 2022-10-27 07:13 | NUR ---
BEDSIDE CHANGE OF SHIFT REPORT, PT AWAKE AND ORIENTED, C/O BEING VERY SORE IN FACE, IVF INFUSING, TELE MONITOR IN PLACE, CALL CABAN IN REACH AND BED LOCKED IN LOWEST POSITION WITH ALARM ACTIVATED.
[2022-10-27 07:23] VITALS: BP 158/99
[2022-10-27 11:28] VITALS: BP 154/87
--- NOTE | 2022-10-27 12:47 | NUR ---
SPOUSE REPORTED PT HAS NOT BEEN TAKING MEDS PRESCRIBED, HAS BEEN DRINKING ALCOHOL AND BEEN SECRETIVE ABOUT IT, SLEEPS 23 HOURS DAILY THEN COMPLAINS HE CANNOT SLEEP, HIS MEDS FINISH MUCH SOONER THAN THEY ARE SUPPOSED TO. HE HAD PASSED OUT AT HOME ON THE [place]FA THEN HE GOT UP TO SMOKE A CIGARETTE, WENT OUT ON THE [place] AND FELL FACE DOWN FROM THE STAIRS.
[2022-10-27 12:58] LABS: URINE BLOOD DIPSTICK Trace-lysed (NEGATIVE); URINE GLUCOSE - DIPSTICK Negative (NEGATIVE); URINE KETONE Trace mg/dL (NEGATIVE); URINE NITRITE - DIPSTICK Negative (Negative); URINE PH 5.5 (4.5-8.0); URINE PROTEIN - DIPSTICK 100 mg/dL (NEG-TRACE); URINE SPECIFIC GRAVITY >=1.030
[2022-10-27 13:00] LABS: URINE COLOR Yellow; URINE LEUK ESTERASE Small (NEGATIVE)
[2022-10-27 13:06] LABS: URINE BACTERIA MANY hpf; URINE RBC 0-2 RBC/hpf (0-5); URINE SQUAMOUS EPITHELIAL CELL FEW EPI/hpf (0-FEW); URINE WBC 20-50 WBC/hpf (0-5)
[2022-10-27 15:04] VITALS: BP 160/101
[2022-10-27 18:10] VITALS: BP 150/85
--- NOTE | 2022-10-27 19:45 | NUR ---
Discharge instructions given. Patient verbalizes understanding of same. Discharged in stable condition via Wheelchair to Home with spouse. All belongings sent with pt.
== END 2022-10-27 19:30 | disposition home or self-care (01) | DRG 87 ==
LOC: ED 21:01 → ED-I 10-27 00:30 → ED 10-27 01:43 → MS2 10-27 01:44
PROVIDERS: Emergency Medicine; ADMIT Student in an Organized Health Care Education/Training Program; ATTEND Student in an Organized Health Care Education/Training Program
PROC: 0HQ1XZZ Repair Face Skin, External Approach (ICD-10-PCS; principal; 2022-10-26)
DX: S06.9X1A Unspecified intracranial injury with loss of consciousness of 30 minutes or less, initial encounter (principal); S01.21XA Laceration without foreign body of nose, initial encounter; F10.129 Alcohol abuse with intoxication, unspecified; M54.6 Pain in thoracic spine; I10 Essential (primary) hypertension; J44.9 Chronic obstructive pulmonary disease, unspecified; E78.00 Pure hypercholesterolemia, unspecified; I25.2 Old myocardial infarction; F17.200 Nicotine dependence, unspecified, uncomplicated; Y90.6 Blood alcohol level of 120-199 mg/100 ml; W10.9XXA Fall (on) (from) unspecified stairs and steps, initial encounter; Y93.9 Activity, unspecified; Y92.009 Unspecified place in unspecified non-institutional (private) residence as the place of occurrence of the external cause; Z86.73 Personal history of transient ischemic attack (TIA), and cerebral infarction without residual deficits; Z79.84 Long term (current) use of oral hypoglycemic drugs
CPT/HCPCS: G0378

== ENCOUNTER 2022-11-05 16:08 | Emergency (ER) | payer OTHER ==
[~2022-11-05] VITALS: Ht 193 cm; Wt 95.0 kg
[2022-11-05 16:20] VITALS: BP 94/50
[2022-11-05 16:50] LABS: BASO% 0.7 % (0-3); EOS% 0.4 % (0-8); HEMATOCRIT 41.7 % (39.0-50.0); HEMOGLOBIN 13.5 g/dl (14.0-18.0); IMMATURE GRANULOCYTES 0.3 % (0.0-5.0); LYMPH% 27.1 % (15-41); MEAN CELL VOLUME 79.1 fL CALC (80.0-100.0); MEAN CORPUSCULAR HGB 25.6 pG CALC (26.0-32.0); MEAN CORPUSCULAR HGB CONC 32.4 g/dL CAL (32.0-36.0); MONO% 6.7 % (2-13); NEUT# 4.76 thou/uL (1.82-7.42); NEUT% 64.8 % (42-76); RED BLOOD COUNT 5.27 mill/uL (4.70-6.10)
[2022-11-05 17:16] LABS: ALBUMIN 3.3 g/dL (3.2-5.0); BILIRUBIN, TOTAL 0.5 mg/dL (0.2-1.3); BUN 4 mg/dL (9-20); BUN/CREATININE RATIO 5 (12-20 (CALC)); CHLORIDE 104 mmol/l (95-108); CREATININE 0.8 mg/dL (0.7-1.3); ETHYL ALCOHOL 271 mg/dl (0-30); GFR FOR AFR.AMER. > 60 ML/MIN (>=60 (CALC)); GFR OTHER RACES > 60 ML/MIN (>=60 (CALC)); SGOT/AST 53 u/l (17-59); SODIUM 139 mmol/l (137-146); TOTAL PROTEIN 5.8 g/dL (6.3-8.2)
[2022-11-05 17:30] LABS: POTASSIUM 2.7 mmol/l (3.5-5.1)
[2022-11-05 17:31] LABS: ALKALINE PHOSPHATASE 104 u/l (38-126); ANION GAP 18 (6-22 (CALC)); CARBON DIOXIDE 20 mmol/l (22-30)
[2022-11-05 18:24] LABS: URINE BILIRUBIN - DIPSTICK Negative (NEGATIVE); URINE BLOOD DIPSTICK Negative (NEGATIVE); URINE GLUCOSE - DIPSTICK >=1000 mg/dL (NEGATIVE); URINE KETONE Negative (NEGATIVE); URINE NITRITE - DIPSTICK Negative (Negative); URINE PH 5.5 (4.5-8.0); URINE PROTEIN - DIPSTICK 30 mg/dL (NEG-TRACE); URINE UROBILINOGEN - DIPSTICK 0.2 E.U./dL (0.2)
[2022-11-05 18:25] LABS: URINE COLOR Yellow; URINE LEUK ESTERASE Small (NEGATIVE)
[2022-11-05 18:37] LABS: URINE BACTERIA MANY hpf; URINE RBC 0-2 RBC/hpf (0-5)
[2022-11-06] MEDS ORDERED: MELATONIN3 M1 PO (03:51)
[2022-11-06] MEDS ORDERED: SEROQUEL200 MG PO (03:51)
[2022-11-06 08:10] VITALS: BP 117/74
== END 2022-11-06 07:00 | DRG 951 ==
LOC: ED 16:08
PROVIDERS: Family Medicine
DX: R45.850 Homicidal ideations (principal); R45.851 Suicidal ideations; R07.9 Chest pain, unspecified; R51.9 Headache, unspecified; I10 Essential (primary) hypertension; E11.9 Type 2 diabetes mellitus without complications; J44.9 Chronic obstructive pulmonary disease, unspecified; I25.2 Old myocardial infarction; F17.200 Nicotine dependence, unspecified, uncomplicated; Z86.73 Personal history of transient ischemic attack (TIA), and cerebral infarction without residual deficits; Z79.84 Long term (current) use of oral hypoglycemic drugs; Z20.822 Contact with and (suspected) exposure to COVID-19

== ENCOUNTER 2023-12-03 19:10 | Emergency (ER) | payer OTHER ==
[2023-12-03] VITALS (19 sets, daily range): BP systolic 142–180; BP diastolic 78–109
[~2023-12-03] VITALS: Ht 193 cm; Wt 90.0 kg
[~2023-12-03 19:10] MED LIST changes: +MELATONIN3 M1 PO; +SEROQUEL200 MG PO
[2023-12-03] MEDS ORDERED: THIAMINE HCL 100 MG/ML 2ML VIAL IV ONE (19:20)
[2023-12-03] MEDS ORDERED: methylPREDNISolone SODIUM SUCC 125 MG/2 ML SDV IV ONE (19:20)
[2023-12-03] MEDS ORDERED: IPRATROPIUM-Albuterol 0.5MG-2.5MG/3 ML NEB ONE (19:20)
[2023-12-03] MEDS ORDERED: ALBUTEROL SULFATE 2.5 MG VIAL NEB ONE (19:20)
[2023-12-03] MEDS ORDERED: SODIUM CHLORIDE 0.9% 1,000 ML IV ONE ×2 (19:20→20:10)
[2023-12-03 19:31] LABS: BASO% 0.8 % (0-3); EOS% 0.1 % (0-8); HEMOGLOBIN 14.4 g/dl (14.0-18.0); IMMATURE GRANULOCYTES 0.3 % (0.0-5.0); LYMPH% 20.2 % (15-41); MEAN CELL VOLUME 85.9 fL CALC (80.0-100.0); MEAN CORPUSCULAR HGB 28.1 pG CALC (26.0-32.0); MEAN CORPUSCULAR HGB CONC 32.7 g/dL CAL (32.0-36.0); MONO% 7.8 % (2-13); NEUT# 5.56 thou/uL (1.82-7.42); NEUT% 70.8 % (42-76); RED BLOOD COUNT 5.12 mill/uL (4.70-6.10); RED CELL DISTRI WIDTH 15.7 % (11.5-15.5)
[2023-12-03 19:50] LABS: ALBUMIN 4.5 g/dL (3.2-5.0); BILIRUBIN, TOTAL 0.8 mg/dL (0.2-1.3); CREATININE 0.9 mg/dL (0.7-1.3); POTASSIUM 4.4 mmol/l (3.5-5.1); TOTAL PROTEIN 7.1 g/dL (6.3-8.2)
[2023-12-03 19:51] LABS: MAGNESIUM 1.7 mg/dL (1.6-2.3)
[2023-12-03] MEDS ORDERED: METFORMIN HCL1000 MG PO (20:11)
[2023-12-03] MEDS ORDERED: SEROQUEL XR200 MG PO (20:12)
[2023-12-03] MEDS ORDERED: NEURONTIN600 MG PO (20:16)
[2023-12-03] MEDS ORDERED: HYDROXYZ HCL50 MG PO (20:17)
[2023-12-03] MEDS ORDERED: VISTARIL25 MG PO (21:02)
[2023-12-03] MEDS ORDERED: CLOTRIMAZOLE1 % VA (21:03)
[2023-12-03] MEDS ORDERED: TAMSULOSIN0.4 MG PO (21:04)
[2023-12-03] MEDS ORDERED: TRAZODONE100 MG PO (21:05)
[2023-12-03] MEDS ORDERED: SEROQUEL400 MG PO (21:07)
[2023-12-03] MEDS ORDERED: COZAAR50 MG PO (21:07)
[2023-12-03] MEDS ORDERED: CYMBALTA30 MG PO (21:08)
[2023-12-03] MEDS ORDERED: ACAMPROSATE CA333 MG PO (21:09)
[2023-12-03] MEDS ORDERED: VRAYLAR3 MG PO (21:09)
[2023-12-03 22:04] LABS: URINE BILIRUBIN - DIPSTICK Negative (NEGATIVE); URINE BLOOD DIPSTICK Trace-intact (NEGATIVE); URINE GLUCOSE - DIPSTICK 500 mg/dL (NEGATIVE); URINE KETONE 15 mg/dL (NEGATIVE); URINE NITRITE - DIPSTICK Negative (Negative); URINE PH 5.5 (4.5-8.0); URINE PROTEIN - DIPSTICK Trace mg/dL (NEG-TRACE); URINE SPECIFIC GRAVITY 1.025; URINE UROBILINOGEN - DIPSTICK 0.2 E.U./dL (0.2)
[2023-12-03 22:06] LABS: URINE COLOR Yellow; URINE LEUK ESTERASE Small (NEGATIVE)
[2023-12-03 22:13] LABS: URINE BACTERIA MANY hpf; URINE WBC 20-50 WBC/hpf (0-5)
[2023-12-03] MEDS ORDERED: BACTRIM DS1 TAB PO (22:17)
[2023-12-03] MEDS ORDERED: SULFAMETHOXAZOLE W/TRIMETHOPRI 1 COMBO TAB PO ONE (22:20)
[2023-12-03] MEDS ORDERED: LORazepam 2 MG/ML IV ONE (22:30)
== END 2023-12-03 23:40 | disposition home or self-care (01) | DRG 191 ==
LOC: ED 19:10
PROVIDERS: Family Medicine
DX: J44.1 Chronic obstructive pulmonary disease with (acute) exacerbation (principal); N39.0 Urinary tract infection, site not specified; B96.89 Other specified bacterial agents as the cause of diseases classified elsewhere; F10.129 Alcohol abuse with intoxication, unspecified; Y90.6 Blood alcohol level of 120-199 mg/100 ml; I10 Essential (primary) hypertension; E11.9 Type 2 diabetes mellitus without complications; I25.2 Old myocardial infarction; E78.00 Pure hypercholesterolemia, unspecified; F17.200 Nicotine dependence, unspecified, uncomplicated; Z79.84 Long term (current) use of oral hypoglycemic drugs; Z20.822 Contact with and (suspected) exposure to COVID-19
CPT/HCPCS: J2060

== ENCOUNTER 2023-12-04 12:47 | Emergency (ER) | payer OTHER ==
[2023-12-04] VITALS (8 sets, daily range): BP systolic 110–147; BP diastolic 73–98
[~2023-12-04] VITALS: Ht 193 cm; Wt 136.0 kg
[~2023-12-04 12:47] MED LIST changes: +ACAMPROSATE CA333 MG PO; +CLOTRIMAZOLE1 % VA; +COZAAR50 MG PO; +CYMBALTA30 MG PO; +HYDROXYZ HCL50 MG PO; +METFORMIN HCL1000 MG PO; +NEURONTIN600 MG PO; +SEROQUEL XR200 MG PO; +SEROQUEL400 MG PO; +TRAZODONE100 MG PO; +VISTARIL25 MG PO; +VRAYLAR3 MG PO
[2023-12-04 13:33] LABS: HEMATOCRIT 40.4 % (39.0-50.0); HEMOGLOBIN 13.2 g/dl (14.0-18.0); IMMATURE GRANULOCYTES 0.2 % (0.0-5.0); LYMPH% 9.2 % (15-41); MEAN CELL VOLUME 87.4 fL CALC (80.0-100.0); MEAN CORPUSCULAR HGB 28.6 pG CALC (26.0-32.0); MEAN CORPUSCULAR HGB CONC 32.7 g/dL CAL (32.0-36.0); MONO% 8.1 % (2-13); NEUT# 5.2 thou/uL (1.82-7.42); NEUT% 82.5 % (42-76); RED BLOOD COUNT 4.62 mill/uL (4.70-6.10)
[2023-12-04 14:13] LABS: URINE BILIRUBIN - DIPSTICK Negative (NEGATIVE); URINE BLOOD DIPSTICK Small (NEGATIVE); URINE GLUCOSE - DIPSTICK >=1000 mg/dL (NEGATIVE); URINE KETONE Negative (NEGATIVE); URINE LEUK ESTERASE Trace (NEGATIVE); URINE NITRITE - DIPSTICK Negative (Negative); URINE PROTEIN - DIPSTICK Trace mg/dL (NEG-TRACE); URINE SPECIFIC GRAVITY 1.015; URINE UROBILINOGEN - DIPSTICK 0.2 E.U./dL (0.2)
[2023-12-04 14:16] LABS: URINE COLOR Yellow
[2023-12-04 14:26] LABS: ALBUMIN 4.6 g/dL (3.2-5.0); ALKALINE PHOSPHATASE 110 u/l (38-126); ANION GAP 20 (6-22 (CALC)); BILIRUBIN, TOTAL 0.7 mg/dL (0.2-1.3); BUN 10 mg/dL (8-23); BUN/CREATININE RATIO 10 (12-20 (CALC)); CARBON DIOXIDE 18 mmol/l (22-30); CHLORIDE 106 mmol/l (95-108); ESTIMATED GFR 86 ML/MIN (>=90 (CALC)); ETHYL ALCOHOL 170 mg/dl (0-30); MAGNESIUM 1.9 mg/dL (1.6-2.3); POTASSIUM 3.6 mmol/l (3.5-5.1); SGOT/AST 66 u/l (19-48); SODIUM 140 mmol/l (137-146); TOTAL PROTEIN 7.3 g/dL (6.3-8.2)
== END 2023-12-04 14:59 | DRG 918 ==
LOC: ED 12:47
PROVIDERS: Family Medicine
DX: T42.6X2A Poisoning by other antiepileptic and sedative-hypnotic drugs, intentional self-harm, initial encounter (principal); T51.0X2A Toxic effect of ethanol, intentional self-harm, initial encounter; F10.129 Alcohol abuse with intoxication, unspecified; Y90.6 Blood alcohol level of 120-199 mg/100 ml; F41.9 Anxiety disorder, unspecified; F32.A Depression, unspecified; J44.9 Chronic obstructive pulmonary disease, unspecified; E78.5 Hyperlipidemia, unspecified; F03.90 Unspecified dementia, unspecified severity, without behavioral disturbance, psychotic disturbance, mood disturbance, and anxiety; E11.40 Type 2 diabetes mellitus with diabetic neuropathy, unspecified; I10 Essential (primary) hypertension; I25.2 Old myocardial infarction; F17.200 Nicotine dependence, unspecified, uncomplicated; Z91.51 Personal history of suicidal behavior; Z79.84 Long term (current) use of oral hypoglycemic drugs; Z86.73 Personal history of transient ischemic attack (TIA), and cerebral infarction without residual deficits

== ENCOUNTER 2024-03-22 17:09 | Observation (INO) | payer OTHER ==
[~2024-03-22] VITALS: Ht 193 cm; Wt 121.0 kg
[2024-03-22] VITALS (18 sets, daily range): BP systolic 109–156; BP diastolic 66–100
[2024-03-22] MEDS ORDERED: IPRATROPIUM-Albuterol 0.5MG-2.5MG/3 ML NEB ONE ×4 (17:25→19:55)
[2024-03-22] MEDS ORDERED: methylPREDNISolone SODIUM SUCC 125 MG/2 ML SDV IV ONE (17:25)
[2024-03-22 17:45] LABS: BASO% 0.9 % (0-3); EOS% 0.5 % (0-8); IMMATURE GRANULOCYTES 0.3 % (0.0-5.0); LYMPH% 30.3 % (15-41); MEAN CELL VOLUME 84.4 fL CALC (80.0-100.0); MEAN CORPUSCULAR HGB 26.9 pG CALC (26.0-32.0); MEAN CORPUSCULAR HGB CONC 31.8 g/dL CAL (32.0-36.0); MONO% 5.6 % (2-13); NEUT# 5.87 thou/uL (1.82-7.42); NEUT% 62.4 % (42-76); RED BLOOD COUNT 5.84 mill/uL (4.70-6.10); RED CELL DISTRI WIDTH 15.1 % (11.5-15.5)
[2024-03-22 17:51] LABS: ALKALINE PHOSPHATASE 78 u/l (38-126); BUN 6 mg/dL (8-23); BUN/CREATININE RATIO 7 (12-20 (CALC)); CARBON DIOXIDE 18 mmol/l (22-30); CHLORIDE 96 mmol/l (95-108); CREATININE 0.8 mg/dL (0.7-1.3); ESTIMATED GFR 101 ML/MIN (>=90 (CALC)); SGOT/AST 55 u/l (19-48); TOTAL PROTEIN 8.3 g/dL (6.3-8.2)
[2024-03-22 17:53] LABS: ANION GAP 20 (6-22 (CALC)); BILIRUBIN, TOTAL 1.1 mg/dL (0.2-1.3); POTASSIUM 4.4 mmol/l (3.5-5.1); SODIUM 130 mmol/l (137-146)
[2024-03-22 17:54] LABS: HEMATOCRIT 49.3 % (39.0-50.0); HEMOGLOBIN 15.7 g/dl (14.0-18.0)
[2024-03-22] MEDS ORDERED: traZODone HCL 50 MG/TAB PO PRN (20:35)
[2024-03-22] MEDS ORDERED: ACETAMINOPHEN 325 MG/TAB PO PRN (20:35)
[2024-03-22] MEDS ORDERED: MAGNESIUM HYDROXIDE 30 ML UDC PO PRN (20:35)
[2024-03-22] MEDS ORDERED: DEXTROSE 250 ML IV PRN (20:35)
[2024-03-22] MEDS ORDERED: ENOXAPARIN SODIUM 40 MG/0.4 ML SYR SC SCH (21:00)
[2024-03-22] MEDS ORDERED: GABAPENTIN 300 MG/CAP PO SCH (21:00)
[2024-03-22] MEDS ORDERED: metFORMIN HYDROCHLORIDE 500 MG/TAB PO SCH (21:00)
[2024-03-22] MEDS ORDERED: TAMSULOSIN HCL 0.4 MG CAP PO SCH (21:00)
[2024-03-22] MEDS ORDERED: INSULIN LISPRO 100 UNITS/ML ML SC SCH (21:00)
[2024-03-22] MEDS ORDERED: QUEtiapine FUMERATE 100 MG/TAB PO SCH (21:00)
[2024-03-22] MEDS ORDERED: methylPREDNISolone Sod Succ 40 MG/ML SDV IV SCH (22:00)
[2024-03-22] MEDS ORDERED: NICOTINE TRANSDERMAL 21 MG/PATCH TD SCH (22:29)
[2024-03-22] MEDS ORDERED: guaiFENesin 200 MG/10 ML UDC PO PRN (22:35)
[2024-03-22] MEDS ORDERED: IPRATROPIUM-Albuterol 0.5MG-2.5MG/3 ML NEB SCH (23:00)
[2024-03-23] VITALS (9 sets, daily range): BP systolic 109–156; BP diastolic 67–87
[2024-03-23] MEDS ORDERED: LORazepam 2 MG/ML IV PRN (08:55)
[2024-03-23] MEDS ORDERED: chlordiazePOXIDE HCL 25 MG CAP PO PRN (08:55)
[2024-03-23] MEDS ORDERED: LOSARTAN Potassium 50 MG/TAB PO SCH (09:00)
[2024-03-23] MEDS ORDERED: PANTOPRAZOLE SODIUM Sesquihydr 40 MG/TAB PO SCH (09:00)
[2024-03-23] MEDS ORDERED: DOXYCYCLINE HYCLATE 100 MG in SODIUM CHLORIDE 0.9% 100 ML IV SCH (11:00)
[2024-03-23] MEDS ORDERED: HYDROcodone 5 MG/Acetaminophen 325 MG/COMBO PO PRN ×2 (13:45→17:40)
[2024-03-23] MEDS ORDERED: QUEtiapine FUMERATE 100 MG/TAB PO SCH (21:00)
[2024-03-23] MEDS ORDERED: IPRATROPIUM-Albuterol 0.5MG-2.5MG/3 ML ONE (22:22)
[2024-03-24] VITALS (8 sets, daily range): BP systolic 129–144; BP diastolic 67–79
[2024-03-24 05:10] LABS: BASO% 0.1 % (0-3); IMMATURE GRANULOCYTES 0.2 % (0.0-5.0); LYMPH% 4.3 % (15-41); MEAN CELL VOLUME 85.5 fL CALC (80.0-100.0); MEAN CORPUSCULAR HGB 28.1 pG CALC (26.0-32.0); MEAN CORPUSCULAR HGB CONC 32.9 g/dL CAL (32.0-36.0); MONO% 4.2 % (2-13); NEUT# 9.6 thou/uL (1.82-7.42); NEUT% 91.2 % (42-76); RED BLOOD COUNT 4.27 mill/uL (4.70-6.10); RED CELL DISTRI WIDTH 14.9 % (11.5-15.5)
[2024-03-24 05:23] LABS: HEMATOCRIT 36.5 % (39.0-50.0)
[2024-03-24 05:41] LABS: CREATININE 0.9 mg/dL (0.7-1.3); MAGNESIUM 1.8 mg/dL (1.6-2.3); POTASSIUM 4.8 mmol/l (3.5-5.1)
[2024-03-24 05:48] LABS: ALBUMIN 3.5 g/dL (3.2-5.0); BILIRUBIN, TOTAL 0.6 mg/dL (0.2-1.3); TOTAL PROTEIN 5.8 g/dL (6.3-8.2)
[2024-03-24] MEDS ORDERED: MULTIPLE VITAMIN TABLET PO SCH (09:00)
[2024-03-24] MEDS ORDERED: FOLIC ACID 1 MG/TAB PO SCH (09:00)
[2024-03-25] VITALS (7 sets, daily range): BP systolic 111–139; BP diastolic 64–87
[2024-03-25 05:33] LABS: HEMATOCRIT 36.8 % (39.0-50.0); IMMATURE GRANULOCYTES 0.6 % (0.0-5.0); LYMPH% 5.1 % (15-41); MEAN CELL VOLUME 86.2 fL CALC (80.0-100.0); MEAN CORPUSCULAR HGB 28.1 pG CALC (26.0-32.0); MEAN CORPUSCULAR HGB CONC 32.6 g/dL CAL (32.0-36.0); MONO% 3.6 % (2-13); NEUT# 9.34 thou/uL (1.82-7.42); NEUT% 90.7 % (42-76); RED BLOOD COUNT 4.27 mill/uL (4.70-6.10)
[2024-03-25 06:04] LABS: ALBUMIN 3.4 g/dL (3.2-5.0); BILIRUBIN, TOTAL 0.4 mg/dL (0.2-1.3); MAGNESIUM 1.6 mg/dL (1.6-2.3); TOTAL PROTEIN 5.8 g/dL (6.3-8.2)
[2024-03-25 06:11] LABS: POTASSIUM 5.2 mmol/l (3.5-5.1)
[2024-03-25] MEDS ORDERED: LORazepam 1 MG/TAB PO PRN (14:00)
[2024-03-26 04:16] VITALS: BP 138/75
[2024-03-26 05:54] LABS: BASO% 0.1 % (0-3); HEMATOCRIT 36.7 % (39.0-50.0); HEMOGLOBIN 11.7 g/dl (14.0-18.0); IMMATURE GRANULOCYTES 0.7 % (0.0-5.0); LYMPH% 6.3 % (15-41); MEAN CORPUSCULAR HGB 28.1 pG CALC (26.0-32.0); MEAN CORPUSCULAR HGB CONC 31.9 g/dL CAL (32.0-36.0); MONO% 4.7 % (2-13); NEUT# 7.57 thou/uL (1.82-7.42); NEUT% 88.2 % (42-76); RED BLOOD COUNT 4.17 mill/uL (4.70-6.10); RED CELL DISTRI WIDTH 15.1 % (11.5-15.5)
[2024-03-26 05:59] LABS: ALBUMIN 3.6 g/dL (3.2-5.0); BILIRUBIN, TOTAL 0.3 mg/dL (0.2-1.3); CREATININE 0.9 mg/dL (0.7-1.3); MAGNESIUM 1.6 mg/dL (1.6-2.3); POTASSIUM 5.1 mmol/l (3.5-5.1); TOTAL PROTEIN 5.9 g/dL (6.3-8.2)
[2024-03-26 07:30] VITALS: BP 123/61
[2024-03-26 10:30] VITALS: BP 133/80
[2024-03-26 15:30] VITALS: BP 121/80
[2024-03-26 18:44] VITALS: BP 122/73
[2024-03-26] MEDS ORDERED: methylPREDNISolone Sod Succ 40 MG/ML SDV IV SCH (21:00)
[2024-03-26 23:51] VITALS: BP 123/70
[2024-03-27 04:10] VITALS: BP 133/70
[2024-03-27 04:49] LABS: HEMATOCRIT 38.3 % (39.0-50.0); HEMOGLOBIN 12.3 g/dl (14.0-18.0); IMMATURE GRANULOCYTES 1.1 % (0.0-5.0); LYMPH% 14.6 % (15-41); MEAN CORPUSCULAR HGB CONC 32.1 g/dL CAL (32.0-36.0); MONO% 5.4 % (2-13); NEUT# 5.07 thou/uL (1.82-7.42); NEUT% 78.9 % (42-76); RED BLOOD COUNT 4.4 mill/uL (4.70-6.10); RED CELL DISTRI WIDTH 15.1 % (11.5-15.5)
[2024-03-27 06:12] LABS: ALBUMIN 3.6 g/dL (3.2-5.0); BILIRUBIN, TOTAL 0.4 mg/dL (0.2-1.3); CREATININE 0.9 mg/dL (0.7-1.3); MAGNESIUM 1.6 mg/dL (1.6-2.3); TOTAL PROTEIN 5.7 g/dL (6.3-8.2)
[2024-03-27 06:21] LABS: POTASSIUM 5.2 mmol/l (3.5-5.1)
[2024-03-27 06:55] VITALS: BP 156/83
[2024-03-27 10:42] VITALS: BP 137/85
[2024-03-27] MEDS ORDERED: DEXTROSE 250 ML IV PRN (12:30)
[2024-03-27] MEDS ORDERED: SODIUM CHLORIDE 0.9% 1,000 ML IV PRN (12:30)
[2024-03-27] MEDS ORDERED: INSULIN GLARGINE 100 UNITS/ML SC SCH (13:00)
[2024-03-27 14:59] VITALS: BP 151/88
[2024-03-27 19:19] VITALS: BP 129/77
[2024-03-27] MEDS ORDERED: DOXYCYCLINE HYCLATE 100 MG/CAP PO SCH (21:00)
[2024-03-27 23:49] VITALS: BP 122/73
[2024-03-28 03:58] VITALS: BP 149/73
[2024-03-28 05:33] LABS: BASO% 0.1 % (0-3); HEMOGLOBIN 11.7 g/dl (14.0-18.0); IMMATURE GRANULOCYTES 1.2 % (0.0-5.0); LYMPH% 12.3 % (15-41); MEAN CELL VOLUME 86.7 fL CALC (80.0-100.0); MEAN CORPUSCULAR HGB 28.2 pG CALC (26.0-32.0); MEAN CORPUSCULAR HGB CONC 32.5 g/dL CAL (32.0-36.0); MONO% 5.2 % (2-13); NEUT# 6.35 thou/uL (1.82-7.42); NEUT% 81.2 % (42-76); RED BLOOD COUNT 4.15 mill/uL (4.70-6.10); RED CELL DISTRI WIDTH 14.7 % (11.5-15.5)
[2024-03-28 05:37] LABS: ALBUMIN 3.3 g/dL (3.2-5.0); BILIRUBIN, TOTAL 0.4 mg/dL (0.2-1.3); CREATININE 0.8 mg/dL (0.7-1.3); MAGNESIUM 1.5 mg/dL (1.6-2.3); POTASSIUM 4.9 mmol/l (3.5-5.1); TOTAL PROTEIN 5.3 g/dL (6.3-8.2)
[2024-03-28 06:18] VITALS: BP 146/86
[2024-03-28] MEDS ORDERED: MAGNESIUM SULFATE HEPTAHYDRATE 50 ML IV SCH (08:00)
[2024-03-28] MEDS ORDERED: DOXYCYCLINE HY100 MG PO (10:35)
[2024-03-28] MEDS ORDERED: LANTUS100 UNIT SC (10:36)
[2024-03-28] MEDS ORDERED: PROTONIX40 M2 PO (10:36)
[2024-03-28] MEDS ORDERED: METFORMIN HCL1000 MG PO (10:36)
[2024-03-28] MEDS ORDERED: CYMBALTA30 MG PO (10:37)
[2024-03-28] MEDS ORDERED: SEROQUEL XR200 MG PO (10:37)
[2024-03-28] MEDS ORDERED: TRAZODONE100 MG PO (10:37)
[2024-03-28] MEDS ORDERED: NEURONTIN600 MG PO (10:38)
[2024-03-28] MEDS ORDERED: TAMSULOSIN0.4 MG PO (10:38)
[2024-03-28] MEDS ORDERED: COZAAR50 MG PO (10:38)
[2024-03-28] MEDS ORDERED: PREDNISONE10 MG PO (10:39)
[2024-03-28 10:45] VITALS: BP 140/87
[2024-03-28] MEDS ORDERED: IPRATROPIU0.5 MG/3 M IN (11:29)
== END 2024-03-28 14:03 | disposition home or self-care (01) | DRG 191 ==
LOC: ED 17:09 → ED-I 18:22 → ED 18:56 → MS2 19:11
PROVIDERS: Emergency Medicine; Internal Medicine; Nurse Practitioner Family; ADMIT Internal Medicine; ATTEND Internal Medicine
DX: J44.1 Chronic obstructive pulmonary disease with (acute) exacerbation (principal); F10.230 Alcohol dependence with withdrawal, uncomplicated; E87.5 Hyperkalemia; I10 Essential (primary) hypertension; E11.65 Type 2 diabetes mellitus with hyperglycemia; I25.10 Atherosclerotic heart disease of native coronary artery without angina pectoris; E78.5 Hyperlipidemia, unspecified; N40.0 Benign prostatic hyperplasia without lower urinary tract symptoms; I25.2 Old myocardial infarction; F17.200 Nicotine dependence, unspecified, uncomplicated; Z85.46 Personal history of malignant neoplasm of prostate; Z92.21 Personal history of antineoplastic chemotherapy; Z86.73 Personal history of transient ischemic attack (TIA), and cerebral infarction without residual deficits; Z79.84 Long term (current) use of oral hypoglycemic drugs
CPT/HCPCS: J0696; J1650; J1815; J2060; J3475

== ENCOUNTER 2024-03-30 20:13 | Observation (INO) | payer OTHER ==
[2024-03-30] VITALS (13 sets, daily range): BP systolic 123–159; BP diastolic 70–117
[~2024-03-30] VITALS: Ht 193 cm; Wt 127.8 kg
[~2024-03-30 20:13] MED LIST changes: +DOXYCYCLINE HY100 MG PO; +IPRATROPIU0.5 MG/3 M IN; +LANTUS100 UNIT SC; +PREDNISONE10 MG PO
--- NOTE | 2024-03-30 20:24 | NUR ---
PT TO ER ROOM 2 FOR BEDSDIE TRIAGE
[2024-03-30] MEDS ORDERED: SODIUM CHLORIDE 0.9% 1,000 ML IV ONE ×4 (20:40→22:05)
[2024-03-30] MEDS ORDERED: ASPIRIN 81 MG/TAB PO ONE (20:40)
[2024-03-30] MEDS ORDERED: INSULIN REGULAR (HUMAN) 100 UNIT/ML INJ IV ONE (20:40)
[2024-03-30 21:05] LABS: BASO% 0.1 % (0-3); EOS% 0.2 % (0-8); HEMATOCRIT 41.8 % (39.0-50.0); IMMATURE GRANULOCYTES 1.6 % (0.0-5.0); LYMPH% 10.8 % (15-41); MEAN CELL VOLUME 88.6 fL CALC (80.0-100.0); MEAN CORPUSCULAR HGB 27.5 pG CALC (26.0-32.0); MEAN CORPUSCULAR HGB CONC 31.1 g/dL CAL (32.0-36.0); MONO% 5.2 % (2-13); NEUT# 8.48 thou/uL (1.82-7.42); NEUT% 82.1 % (42-76); RED BLOOD COUNT 4.72 mill/uL (4.70-6.10); RED CELL DISTRI WIDTH 14.9 % (11.5-15.5)
[2024-03-30] MEDS ORDERED: methylPREDNISolone SODIUM SUCC 125 MG/2 ML SDV IV ONE (21:05)
[2024-03-30] MEDS ORDERED: IPRATROPIUM-Albuterol 0.5MG-2.5MG/3 ML IN ONE (21:05)
[2024-03-30 21:19] LABS: ALBUMIN 3.7 g/dL (3.2-5.0); BILIRUBIN, TOTAL 0.4 mg/dL (0.2-1.3); CREATININE 0.8 mg/dL (0.7-1.3); MAGNESIUM 1.5 mg/dL (1.6-2.3); POTASSIUM 4.8 mmol/l (3.5-5.1); TOTAL PROTEIN 6.1 g/dL (6.3-8.2)
--- NOTE | 2024-03-30 21:30 | NUR ---
Reassessment of patient completed. No distress noted.
[2024-03-30 23:07] LABS: URINE BILIRUBIN - DIPSTICK Negative (NEGATIVE); URINE BLOOD DIPSTICK Negative (NEGATIVE); URINE COLOR Yellow; URINE GLUCOSE - DIPSTICK >=1000 mg/dL (NEGATIVE); URINE KETONE Trace mg/dL (NEGATIVE); URINE LEUK ESTERASE Negative (NEGATIVE); URINE NITRITE - DIPSTICK Negative (Negative); URINE PH 5.5 (4.5-8.0); URINE PROTEIN - DIPSTICK Negative (NEG-TRACE); URINE SPECIFIC GRAVITY 1.015; URINE UROBILINOGEN - DIPSTICK 0.2 E.U./dL (0.2)
[2024-03-31] VITALS (46 sets, daily range): BP systolic 121–160; BP diastolic 65–114
[2024-03-31] MEDS ORDERED: INSULIN REGULAR (HUMAN) IN SOD 100 ML IV ONE (00:50)
--- NOTE | 2024-03-31 02:05 | NUR ---
GLUCOSE RECHECK 332, INSULIN DRIP CURRENLTY RUNNING AT 4UNITS/HR. PT REPORTS NO PROBLEMS AT THIS TIME. CALL LIGHT WITHIN REACH.
--- NOTE | 2024-03-31 03:05 | NUR ---
INSULIN DRIP TITRATED DOWN TO 3 UNITS
--- NOTE | 2024-03-31 05:05 | NUR ---
GLUCOSE RECHECK 245
[2024-03-31] MEDS ORDERED: ONDANSETRON 4 MG/TAB ODT PO PRN (05:45)
[2024-03-31] MEDS ORDERED: FAMOTIDINE 10MG/ML 2ML SDV IV PRN (05:45)
[2024-03-31] MEDS ORDERED: ONDANSETRON HCl 4 MG/2 ML SDV IV PRN (05:45)
[2024-03-31] MEDS ORDERED: ALUM & MAG HYDROX-SIMETHICONE 30 ML PO PRN (05:45)
[2024-03-31] MEDS ORDERED: Polyethylene Glycol 3350 17 GM/PKT PO PRN (05:45)
[2024-03-31] MEDS ORDERED: IBUPROFEN 800 MG/TAB PO PRN (05:45)
[2024-03-31] MEDS ORDERED: SODIUM CHLORIDE 0.9% 1,000 ML IV PRN (05:45)
--- NOTE | 2024-03-31 06:15 | NUR ---
GLUCOSE RECHECK 221
--- NOTE | 2024-03-31 06:28 | NUR ---
PT SITTING UP IN BED, NO DISTRESS NOTED AT THIS TIME. CALL LIGHT WITHIN REACH. PENDING ROOM NUMBER FOR ADMISSION AT THIS TIME. VITAL SIGNS STABLE.
--- NOTE | 2024-03-31 07:03 | NUR ---
JANEY NURSE SPOKE WITH ON THE PHONE. PER DR GONCALVES INSULIN DRIP AND DOWNGRADE PATIENT TO MEDSURG STATUS.
--- NOTE | 2024-03-31 07:10 | NUR ---
INSULIN DRIP DC PER VERBAL ORDER FROM CYNTHIA. PT BGL 198
--- NOTE | 2024-03-31 07:14 | NUR ---
1440ML OF URINE COLLECTED FROM URINAL AT BEDSIDE. PT RESTING IN BED. DENIES ANY NEEDS.
--- NOTE | 2024-03-31 07:20 | NUR ---
PT AMBULATE TO ER WEIGHT SCALE WITH STEADY GAIT. PTS MORNING WEIGHT IS 127.7KG.
[2024-03-31 07:31] LABS: EOS% 0.1 % (0-8); HEMATOCRIT 38.4 % (39.0-50.0); IMMATURE GRANULOCYTES 3.1 % (0.0-5.0); LYMPH% 8.1 % (15-41); MEAN CELL VOLUME 88.1 fL CALC (80.0-100.0); MEAN CORPUSCULAR HGB 27.5 pG CALC (26.0-32.0); MEAN CORPUSCULAR HGB CONC 31.3 g/dL CAL (32.0-36.0); MONO% 2.6 % (2-13); NEUT# 8.1 thou/uL (1.82-7.42); NEUT% 86.1 % (42-76); RED BLOOD COUNT 4.36 mill/uL (4.70-6.10)
[2024-03-31 07:32] LABS: ALBUMIN 3.3 g/dL (3.2-5.0); BILIRUBIN, TOTAL 0.5 mg/dL (0.2-1.3); CREATININE 0.6 mg/dL (0.7-1.3); TOTAL PROTEIN 5.5 g/dL (6.3-8.2)
[2024-03-31 07:34] LABS: POTASSIUM 5.2 mmol/l (3.5-5.1)
[2024-03-31] MEDS ORDERED: GABAPENTIN 300 MG/CAP PO SCH (08:00)
[2024-03-31] MEDS ORDERED: DOXYCYCLINE HYCLATE 100 MG/CAP PO SCH (08:00)
--- NOTE | 2024-03-31 08:22 | NUR ---
PT RESTING IN BED. VSS. NO DISTRESS NOTED.
[2024-03-31] MEDS ORDERED: PANTOPRAZOLE SODIUM Sesquihydr 40 MG/TAB PO SCH (09:00)
[2024-03-31] MEDS ORDERED: INSULIN GLARGINE 100 UNITS/ML SC SCH (09:00)
[2024-03-31] MEDS ORDERED: metFORMIN HYDROCHLORIDE 500 MG/TAB PO SCH (09:00)
[2024-03-31] MEDS ORDERED: LOSARTAN Potassium 50 MG/TAB PO SCH (09:00)
--- NOTE | 2024-03-31 10:03 | NUR ---
PTS BREAKFAST TRAY SERVED ALONG WITH COFFEE. PT EDUCATED ON WAIT TIME TO BE UPSTAIRS AND DENIES ANY NEEDS.
--- NOTE | 2024-03-31 10:20 | NUR ---
REPORT CALLED AND GIVEN TO NURSE ON MEDSURG.
--- NOTE | 2024-03-31 10:27 | NUR ---
PATIENT ARRIVED TO [place] FROM THE ED TO ROOM 274. PATIENT A&OX4. BREATHING UNLABORED ON ROOM AIR. TELE INTACT. IV IN LAC SL;SITE CLEAN AND INTACT. PT ASSESSMENT COMPLETED. PERSONAL BELONGINGS PUT AWAY PER PT REQUEST. PT DENIES ANY N/D/V AT THIS TIME.STATES TO HAVE SOME BACK PAIN RATED AT A 8. MEDICATION REVIEWED. PERSONAL ITEMS WELL CALL LIGHT NEAR. PT EDUCATED CIVIL TECHNICIAN LIGHT USE;VERBALIZED UNDERSTANDING. BED IN LOWEST POSITION. POC ONGOING. NO NEEDS AT THIS TIME.
--- NOTE | 2024-03-31 10:37 | NUR ---
patient glucose level is 247.
--- NOTE | 2024-03-31 10:45 | NUR ---
PATIENT PROVIDED WITH EDUCATION AND DEMONSTRATION OF INSULIN SLIDING SCALE ADMINISTRATION. PATIENT PROVIDED WITH PRINTOUT OF HIS SLIDING SCALE. PATIENT RETURNED DEMONSTARTION OF INSULIN ADMINISTRATION WITH NO ISSUES. ALL QUESTIONS ANSWERED. POC ONGOING.
[2024-03-31] MEDS ORDERED: INSULIN LISPRO 100 UNITS/ML ML SC SCH ×2 (11:00)
[2024-03-31] MEDS ORDERED: IPRATROPIUM-Albuterol 0.5MG-2.5MG/3 ML NEB PRN (11:35)
[2024-03-31] MEDS ORDERED: PATIENT' OWN MED 1 EA DOSE IN PRN (11:35)
--- NOTE | 2024-03-31 12:04 | NUR ---
PATIENT LYING IN BED WATCHING TV. BREATHING UNLABORED ON ROOM AIR. TELE INTACT. IV IN LAC SL;SITE CLEAN AND INTACT. PT STATES TO STILL HAVE SOME BACK PAIN;MEDICATION REVIEWED AND ADMINISTERED PER EMAR. DENIES ANY N/D/V AT THIS TIME. PERSONAL ITEMS WELL CALL LIGHT WITHIN REACH. BED IN LOWEST POSITION. URINAL NEAR. NO OTHER NEEDS AT THIS TIME. POC ONGOING.
[2024-03-31] MEDS ORDERED: MAGNESIUM SULFATE HEPTAHYDRATE 50 ML IV SCH (13:00)
--- NOTE | 2024-03-31 16:20 | NUR ---
patient glucose level is 181.
--- NOTE | 2024-03-31 16:36 | NUR ---
PATIENT LYING IN BED WITH EYES CLOSED RESTING;AWAKENS WITH VERBAL STIMULI. BREATHING UNLABORED ON ROOM AIR. TELE INTACT. IV IN LAC INFUSING FLUIDS PER EMAR;SITE CLEAN AND INTACT. PT PROVIDED DEMONSTRATION OF INSULIN ADMINISTRATION; DEMONSTRATED CLEAR UNDERSTANDING OF ADMINISTRATION WITH NO ISSUES. DENIES ANY PAIN OR N/D/V AT THIS TIME. PERSONAL ITEMS WELL CALL LIGHT WITHIN REACH. NO OTHER NEEDS AT THIS TIME. BED IN LOWEST POSITION. POC ONGOING.
--- NOTE | 2024-03-31 19:20 | NUR ---
PATIENT OBSERVED RESTING IN BED. ALERT AND ABLE TO MAKE NEEDS KNOWN. ASSESSMENT COMPLETE. NO DISTRESS NOTED. NO COMPLAINTS OF PAIN. PATIENT CHANGES POSITION ON HIS OWN. DENIES NEEDING ANYTHING AT THIS TIME. BED IN LOW POSITION. CALL CABAN IN REACH.
[2024-03-31] MEDS ORDERED: TAMSULOSIN HCL 0.4 MG CAP PO SCH (21:00)
[2024-03-31] MEDS ORDERED: traZODone HCL 50 MG/TAB PO PRN (21:00)
[2024-03-31] MEDS ORDERED: QUEtiapine FUMERATE 100 MG/TAB PO SCH (21:00)
[2024-04-01] VITALS: BP 140/72
[2024-04-01 00:27] VITALS: BP 140/72
--- NOTE | 2024-04-01 00:28 | NUR ---
PATIENT REMAINS RESTING IN BED. NO DISTRESS NOTED. DENIES NEEDING ANYTHING AT THIS TIME. BED REMAINS IN LOW POSITION. CALL CABAN IN REACH.
--- NOTE | 2024-04-01 04:10 | NUR ---
PATIENT REMAINS RESTING IN BED. DENIES NEEDING ANYTHING AT THIS TIME. CALL CABAN AND BELONGINGS IN REACH.
[2024-04-01 05:30] VITALS: BP 138/67
[2024-04-01 05:37] VITALS: BP 138/67
[2024-04-01 06:06] LABS: BASO% 0.1 % (0-3); EOS% 0.7 % (0-8); HEMATOCRIT 36.2 % (39.0-50.0); HEMOGLOBIN 11.4 g/dl (14.0-18.0); IMMATURE GRANULOCYTES 0.7 % (0.0-5.0); LYMPH% 29.4 % (15-41); MEAN CELL VOLUME 88.9 fL CALC (80.0-100.0); MEAN CORPUSCULAR HGB CONC 31.5 g/dL CAL (32.0-36.0); MONO% 5.8 % (2-13); NEUT# 5.24 thou/uL (1.82-7.42); NEUT% 63.3 % (42-76); RED BLOOD COUNT 4.07 mill/uL (4.70-6.10); RED CELL DISTRI WIDTH 15.2 % (11.5-15.5)
[2024-04-01 06:08] LABS: ALBUMIN 2.7 g/dL (3.2-5.0); BILIRUBIN, TOTAL 0.3 mg/dL (0.2-1.3); CREATININE 0.7 mg/dL (0.7-1.3); MAGNESIUM 1.7 mg/dL (1.6-2.3); TOTAL PROTEIN 4.8 g/dL (6.3-8.2)
[2024-04-01 06:10] LABS: POTASSIUM 3.9 mmol/l (3.5-5.1)
[2024-04-01 06:55] VITALS: BP 133/78
--- NOTE | 2024-04-01 07:01 | NUR ---
pt sugar was 186 @[id number]
--- NOTE | 2024-04-01 07:03 | NUR ---
PATIENT LYING ON RIGHT SIDE WITH EYES CLOSED RESTING. BREATHING UNLABORED ON ROOM AIR. TELE INTACT. IV IN LAC INFUSING FLUIDS PER EMAR;SITE CLEAN AND INTACT. NO SIGNS OF PAIN OR DISTRESS NOTED. PERSONAL ITEMS WITHIN REACH WELL CALL LIGHT. BED IN LOWEST POSITION. POC ONGOING. NO OTHER NEEDS AT THIS TIME. POC ONGOING.
[2024-04-01 10:18] VITALS: BP 116/67
--- NOTE | 2024-04-01 10:30 | NUR ---
ptient glucose level is 268
[2024-04-01] MEDS ORDERED: LANTUS100 UNIT SC (11:20)
[2024-04-01] MEDS ORDERED: NOVOLOG100 UNIT SC (11:25)
--- NOTE | 2024-04-01 12:25 | NUR ---
PATIENT SITTING UP IN BED WATCHING TV. BREATHING UNLABORED ON ROOM AIR. IV IN LAC SL;SITE CLEAN AND INTACT. PT HAS NO C/O OF PAIN OR N/D/V AT THIS TIME. PHARMACY IN ROOM GIVING PT PRESCRIPTION OF INSULIN. PERSONAL ITEMS NEAR WELL CALL LIGHT. BED IN LOWEST POSITION. POC ONGOING. NO OTHER NEEDS AT THIS TIME.
--- NOTE | 2024-04-01 13:48 | NUR ---
TELE #13 REMOVED, CLEANED AND PLACED IN BIN AT NURSING STATION.
--- NOTE | 2024-04-01 13:50 | NUR ---
Discharge instructions given. Patient verbalizes understanding of same. Discharged in stable condition via Wheelchair to Home with staff. All belongings sent with pt.
--- NOTE | 2024-04-05 09:34 | NUR ---
DISCHARGE FOLLOW UP CALL COMPLETED 04/05/24. PATIENT STATES HE IS DOING WELL. pATIENT HAS RESUMED HIS NORMAL MEDICATION ROUTINE. PATIENT DOES NOT HAVE AN APPOINTMENT WITH HIS PCP UNTIL JULY BUT IS TRYINT TO SEE [facility] SOONER. PATIENT REQUESTED ASSISSTANCE IN OBTAINING NICOTINE REPLACEMENT PATCHES AND REQUEST WAS SENT TO [facility] FOR PATIENT. NO OTHER NEEDS OR CONCERNS VERBALIZED AT THIS TIME.
== END 2024-04-01 13:50 | disposition home or self-care (01) ==
LOC: ED 20:13 → ED-I 21:45 → ED 03-31 07:35 → MS2 03-31 07:36
PROVIDERS: Internal Medicine; ADMIT Internal Medicine; ATTEND Internal Medicine
DX: E11.65 Type 2 diabetes mellitus with hyperglycemia (principal); I10 Essential (primary) hypertension; J44.9 Chronic obstructive pulmonary disease, unspecified; I25.10 Atherosclerotic heart disease of native coronary artery without angina pectoris; F10.10 Alcohol abuse, uncomplicated; F17.200 Nicotine dependence, unspecified, uncomplicated; Z86.73 Personal history of transient ischemic attack (TIA), and cerebral infarction without residual deficits; R82.71 Bacteriuria
CPT/HCPCS: J0696; J1815; J3475